=== PATIENT | female | born 2000 | race Two or more races ===

== ENCOUNTER 2024-07-26 22:44 | Inpatient (IN) | payer MEDICAID, OTHER ==
[~2024-07-26] VITALS: Ht 162.6 cm; Wt 60.3 kg
--- NOTE | 2024-07-26 23:32 | ED.PDOC ---
GI ASSESSMENT HPI Comments 23-year-old female who came to ER for nausea and vomiting. Patient states she has been having epigastric abdominal pain, nausea and vomiting for the past 2 days. States she could not keep anything in, keeps throwing up everything. Had episodes of diarrhea the 1st day, but the resolved spontaneously. Vomiting persisted, associated with tingling of extremities. Denies any possibility of Chief Complaint: Nausea and vomiting Time Seen by MD: 23:31 Reviewed Notes: Nurses Notes Allergies: Coded Allergies: No Known Drug Allergy (Verified Allergy, Unknown, 07/26/24) Information Source: Patient Mode of Arrival: Ambulatory Timing: Days Duration: Intermittent Prehospital treatment: None Quality: Cramping, Sharp Vomitus: Watery Stool: Loose, Watery Severity: Moderate Recent: Possible spoiled food Recent Hx of: None Pain Location: Epigastric Modifying Factors: Nothing Associated sign and symptoms: Nausea, Vomiting, Diarrhea, Abdominal Pain Past Medical History PAST MEDICAL HISTORY: Denies Surgical History: Denies all surgeries CHURNER History: Denies all CHURNER Hx Family History Family History: Reviewed,noncontributory to illness Social History Smoker: Non-Smoker Alcohol: Denies ETOH Use Drugs: Denies Drug Use Lives In: Home Constitutional: denies: chills, diaphoresis, fatigue, fever, malaise, sweats, weakness, others EENTM: denies: blurred vision, double vision, ear bleeding, ear discharge, ear drainage, ear pain, ear ringing, eye pain, eye redness, hearing loss, mouth pain, mouth swelling, nasal discharge, nose bleeding, nose congestion, nose pain, photophobia, tearing, throat pain, throat swelling, voice changes, others Respiratory: denies: cough, hemoptysis, orthopnea, SOB at rest, shortness of breath, SOB with excertion, stridor, wheezing, others Cardiovascular: denies: chest pain, dizzy spells, diaphoresis, Dyspnea on exertion, edema, irregular heart beat, left arm pain, lightheadedness, palpitations, PND, syncope, others Gastrointestinal: reports: abdominal pain, diarrhea, nausea, vomiting; denies: abdomen distended, blood streaked bowels, constipated, dysphagia, difficulty swallowing, hematemesis, melena, poor appetite, poor fluid intake, rectal bleeding, rectal pain, others Genitourinary: denies: abnormal vagina bleeding, burning, dyspareunia, dysuria, flank pain, frequency, hematuria, incontinence, pain, , vagina discharge, urgency, others Neurological: denies: dizziness, fainting, headache, left sided numbness, left sided weakness, numbness, paresthesia, pre-existing deficit, right sided numb ness, right sided weakness, seizure, speech problems, tingling, tremors, weakness, others Musculoskeletal: denies: back pain, gout, joint pain, joint swelling, muscle pain, muscle stiffness, neck pain, others Integumetry: denies: bruises, change in color, change in hair/nails, dryness, laceration, lesions, lumps, rash, wounds, others Allergic/Immunocompromised: denies: Difficulty Healing, Frequent Infections, Hives, Itching, others Hematologic/Lymphatic: denies: anemia, blood clots, easy bleeding, easy bruising, swollen glands, others Endocrine: denies: excessive hunger, excessive sweating, excessive thirst, excessive urination, flushing, intolerance to cold, intolerance to heat, unexplained weight gain, unexplained weight loss, others Psychiatric: reports: anxiety; denies: bipolar disorder, depression, hopeless, panic disorder, schizophrenia, sleepless, suicidal, others Physical Exam General Appearance: No Apparent Distress, Normal HEENT: Normal ENT Inspection, Pharynx Normal, TMs Normal Neck: Full Range of Motion, Non-Tender, Normal, Normal Inspection Respiratory: Chest Non-Tender, Lungs Clear, No Accessory Muscle Use, No Respiratory Distress, Normal Breath Sounds Cardiovascular: No Edema, No JVD, No Murmur, No Gallop, Normal Peripheral Pu lses, Regular Rate/Rhythm Breast Exam: Deferred Gastrointestinal: Epigastric, No Organomegaly, No Pulsatile Mass, Normal Bowel Sounds, Soft, Tenderness Genitalia: Deferred Pelvic: Deferred Rectal: Deferred Extremities: No calf tenderness, Normal capillary refill, Normal inspection, Normal range of motion, Non-tender, No pedal edema Musculoskeletal : Apperance: Normal Neurologic: Alert, upholstery repairer II-XII nml as Tested, No Motor Deficits, Normal Affect, Normal Mood, No Sensory Deficits Cerebellar Function: Normal Reflexes: Normal Skin: Dry, Normal Color, Warm Lymphatic: No Adenopathy Was a procedure done? Was a procedure done?: No GI differential Dx Differential Diagnosis: Diverticular disease, Gastritis/PUD, Gastroenteritis, UTI, Food Poisoning X-Ray, Labs, Meds, VS Vital Signs Date Time Temp Pulse Resp B/P (MAP) Pulse Ox O2 Delivery O2 Flow Rate FiO2 07/27/24 01:27 98.4 89 16 113/79 (90) 98 98.4 07/26/24 23:38 98.1 127 18 127/91 (103) 98 98.1 Lab Test 07/27/24 02:30 07/27/24 02:25 07/26/24 23:31 Range/Units Lactic Acid Level 4.6 *H 0.4-2.0 mmol/L Beta HCG, Quantitative 0.1 L 1.5-4.2 mIU/mL Influenza Type A Antigen Negative Negative Influenza Type B Antigen Negative Negative SARS-CoV-2 Antigen (Rapid) Negative NEGATIVE Group A Streptococcus Rapid Negative White Blood Count 21.4 H 4.4-10.8 10^3/uL Red Blood Count 5.57 H 4.0-5.20 10^6/uL Hemoglobin 17.1 H 12.2-16.2 g/dL Hematocrit 50.4 H 36.0-46.0 % Mean Corpuscular Volume 90.5 80.0-100.0 fL Mean Corpuscular Hemoglobin 30.7 28.0-32.0 pg Mean Corpuscular Hemoglobin Concent 33.9 32.0-36.0 g/dL Red Cell Distribution Width 13.3 11.8-14.3 % Platelet Count 296 140-450 10^3/uL Mean Platelet Volume 7.4 6.9-10.8 fL Neutrophils (%) (Auto) 87.4 H 37.0-80.0 % Lymphocytes (%) (Auto) 4.9 L 10.0-50.0 % Monocytes (%) (Auto) 7.5 0.0-12.0 % Eosinophils (%) (Auto) 0.0 0.0-7.0 % Basophils (%) (Auto) 0.2 0.0-2.0 % Neutrophils # (Auto) 18.7 H 1.6-8.6 10 ^3/uL Lymphocytes # (Auto) 1.0 0.4-5.4 10 ^3/uL Monocytes # (Auto) 1.6 H 0-1.3 10 ^3/uL Eosinophils # (Auto) 0 0-0.8 10 ^3/uL Basophils # (Auto) 0.1 0-0.2 10 ^3/uL Nucleated Red Blood Cells 0.0 % Sodium Level 139 136-145 mmol/L Potassium Level 3.5 3.5-5.1 mmol/L Chloride Level 97 L 98-107 mmol/L Carbon Dioxide Level 21 20-31 mmol/L Anion Gap 21 H 5-15 Blood Urea Nitrogen 16 9-23 mg/dL Creatinine 1.31 H 0.550-1.02 mg/dL Glomerular Filtration Rate Calc 59 >90 mL/min BUN/Creatinine Ratio 12.2 10.0-20.0 Serum Glucose 146 H 74-106 mg/dL Calcium Level 10.6 H 8.7-10.4 mg/dL Magnesium Level 1.8 1.6-2.6 mg/dL Total Bilirubin 0.5 0.2-1.0 mg/dL Aspartate Amino Transferase (AST) 25 13-40 U/L Alanine Aminotransferase (ALT) 20 7-40 U/L Alkaline Phosphatase 103 46-116 U/L Total Protein 8.5 H 5.7-8.2 g/dL Albumin 5.6 H 3.2-4.8 g/dL Current Medications Medications (Trade) Dose Ordered Sig/Gee Route Start Time Stop Time Status Last Admin Ondansetron HCl (Zofran) 4 mg ONCE ONCE IV 07/26/24 23:30 07/26/24 23:31 DC 07/27/24 01:06 Sodium Chloride 1,000 ml @ 1,000 mls/hr Q1H ONCE IVB 07/26/24 23:30 07/27/24 00:29 DC 07/27/24 01:06 Lorazepam (Ativan Inj) 1 mg ONCE ONCE IV 07/26/24 23:30 07/26/24 23:31 DC 07/27/24 01:06 Potassium Chloride (Klor-Con Tablet) 20 meq ONCE ONCE PO 07/26/24 23:30 07/26/24 23:31 DC 07/27/24 01:05 Piperacillin Sod/ Tazobactam Sod 100 ml @ 100 mls/hr ONCE ONCE IV 07/27/24 02:30 07/27/24 03:29 DC 07/27/24 02:30 Lidocaine HCl (Xylocaine 2% Viscous) 3 ml ONCE ONCE MT 07/27/24 02:30 07/27/24 02:31 DC 07/27/24 02:39 Metoclopramide HCl (Reglan Injection) 10 mg ONCE ONCE IV 07/27/24 03:45 07/27/24 03:46 DC 07/27/24 03:43 Diphenhydramine HCl (Benadryl Injection) 25 mg ONCE ONCE IV 07/27/24 03:45 07/27/24 03:46 DC 07/27/24 03:43 Exam: CT CT AB PEL WO CON-NO ORAL OR IV History: abd pain Comparison Study: None Technique: Multidetector spiral CT of the abdomen was performed from lung bases to pubic symphysis. Imaging was performed without IV contrast. Axial, coronal and sagittal multiplanar reformats were obtained from the axial data set by the technologist. Radiation Dose : 1. Abdomen/Pelvis: CTDIvol 5.82 mGy, DLP 308.63 mGy*cm. Findings: Evaluation of solid organs is limited due to lack of intravenous contrast use. Lung Bases: No acute or significant lung base finding. Normal heart size. No pleural or pericardial effusion. Liver: The liver is normal in size. No focal lesions. Gallbladder and Biliary Tree: Unremarkable Spleen: Unremarkable Pancreas: The pancreas is grossly normal in appearance. Adrenal Glands: Unremarkable Kidneys: Kidneys are grossly normal without calculi or hydronephrosis. Bladder: Grossly unremarkable for degree of distention. Bowel: The stomach is grossly normal in appearance. Small bowel and colon are normal in caliber and distribution. The appendix is not visualized; however, no secondary findings of acute appendicitis identified. Ascites: Small volume likely physiologic pelvic cul-de-sac free fluid. Lymphadenopathy: No mesenteric, retroperitoneal or periportal lymphadenopathy. Abdominal Wall and Mesentery: Unremarkable. Vasculature: The visualized abdominal aorta is normal in size and caliber. Evaluation of abdominal and pelvic vessels is limited due to lack of intravenous contrast. Pelvic Organs: Unremarkable Musculoskeletal: No aggressive focal bony lesions, acute fractures or dislocation. IMPRESSION: 1. No acute abdominal or pelvic findings. 2. Small volume likely physiologic pelvic cul-de-sac free fluid. Time of 1ST Reevaluation: 23:23 Reevaluation 1ST: Unchanged Patient Education/Counseling: Diagnosis, Treatment Family Education/Counseling: Diagnosis, Treatment Sepsis focused exam: focus exam completed (In the initial resuscitation at least 30 mL/kg of IV crystalloid fluid was NOT given within the first 3 hr due to concerns of fluid overload), time: (99) Sepsis Sepsis Reasesment Focused Exam Sepsis focused exam: focus exam completed (In the initial resuscitation at least 30 mL/kg of IV crystalloid fluid was NOT given within the first 3 hr due to concerns of fluid overload), time: (99) Orders: Laboratory Tests 07/27/24 02:30: Lactic Acid Level 4.6 Departure 1 Departure Time of Disposition: 04:00 Impression: Primary Impression: Sepsis syndrome Additional Impression: Dehydration Disposition: 09 ADMITTED INPATIENT Admit to: Med Surg Condition: Guarded Comments Sepsis with Fever, Nausea, and Vomiting Chief Complaint: Fever, nausea, vomiting, sore throat, and abdominal pain History of Present Illness: 23-year-old female presents with a 2-day history of fevers, malaise, nausea, vomiting, sore throat, and generalized abdominal pain. Patient reports difficulty holding down fluids. Symptoms have been persistent despite home management. Review of Systems: Constitutional: Positive for fever, malaise Gastrointestinal: Positive for nausea, vomiting, abdominal pain ENT: Positive for sore throat All other systems reviewed and negative Vital Signs: Heart Rate: 120s bpm (tachycardic) Physical Exam: Limited exam details available from caddie supervisor Lab Results: WBC: 21,000 with 87% neutrophils (elevated with left shift) Creatinine: 1.31 (elevated) Lactic acid: 4.6 (elevated) Strep test: Negative Influenza test: Negative COVID-19 test: Negative Imaging and Other Relevant Results: CT Abdomen/Pelvis: No acute pathology Medical Decision Making: Summary Statement: 23-year-old female presenting with sepsis syndrome, characte rized by tachycardia, elevated WBC with left shift, elevated lactate, and organ dysfunction (elevated creatinine). Problem List: 1. Sepsis syndrome 2. Dehydration 3. Intractable vomiting Differential Diagnosis: Sepsis (unknown source), gastroenteritis, yara lonephritis, intra-abdominal infection, viral syndrome ED Course: Patient received IV fluid resuscitation, broad-spectrum antibiotics (Zosyn and Rocephin), and antiemetics (Zofran and Reglan). Due to persistent symptoms and sepsis criteria, admission was warranted. Assessment and Plan: 1. Sepsis Syndrome - Broad-spectrum antibiotics initiated (Zosyn and Rocephin) - IV fluid resuscitation - Admission to hospital for continued management and source identification 2. Intractable Vomiting/Dehydration - IV antiemetics administered (Zofran and Reglan) - IV fluid replacement - Continue supportive care during admission Billing Information: ICD-10: A41.9 - Sepsis, unspecified organism ICD-10: R11.2 - Nausea with vomiting, unspecified ICD-10: E86.0 - Dehydration Critical Care Note Critical Care Time?: Yes (35 min-critical care time only) Critical care comment: Total critical care time: Approximately 36 minutes Due to a high probability of clinically significant, life threatening deterioration, the patient required my highest level of preparedness to intervene emergently and I personally spent this critical care time directly and personally managing the patient. This critical care time included obtaining a history; examining the patient; pulse oximetry; ordering and review of studies; arranging urgent treatment with development of a management plan; evaluation of patient's response to treatment; frequent reassessment; and, discussions with other providers. This critical care time was performed to assess and manage the high probability of imminent, life-threatening deterioration that could result in multi-organ failure. It was exclusive of separately billable procedures and treating other patients. Stability Stability form required: No Heart Score Heart Score: Heart Score Response (Comments) Value History N/A 0 EKG N/A 0 Age N/A 0 Risk Factors N/A 0 Troponin N/A 0 Total 0 I personally scribed for ELYSSA VIGIL MD ([email or web address]) on 07/26/24 at 23:32. Electronically submitted by Coredll Sanchez ([email or web address]). I personally scribed for ELYSSA VIGIL MD ([email or web address]) on 07/27/24 at 03:59. Electronically submitted by Cordell Sanchez ([email or web address]). ELYSSA VIGIL MD Jul 26, 2024 23:32
[2024-07-26 23:40] LABS: Basophils # (auto) 0.1 10 ^3/uL (0-0.2); Basophils % (auto) 0.2 % (0.0-2.0); Eosinophils # (auto) 0 10 ^3/uL (0-0.8); Hematocrit 50.4 % (36.0-46.0); Hemoglobin 17.1 g/dL (12.2-16.2); Lymphocytes % (auto) 4.9 % (10.0-50.0); Mean Corpuscular Hemoglobin 30.7 pg (28.0-32.0); Mean Corpuscular Hgb Conc. 33.9 g/dL (32.0-36.0); Mean Corpuscular Volume 90.5 fL (80.0-100.0); Monocytes # (auto) 1.6 10 ^3/uL (0-1.3); Monocytes % (auto) 7.5 % (0.0-12.0); Neutrophils # (auto) 18.7 10 ^3/uL (1.6-8.6); Neutrophils % (auto) 87.4 % (37.0-80.0); Platelet Count (auto) 296 10^3/uL (140-450); Red Blood Cells 5.57 10^6/uL (4.0-5.20); Red Cell Distribution Width 13.3 % (11.8-14.3); White Blood Cell 21.4 10^3/uL (4.4-10.8)
[2024-07-27] VITALS (9 sets, daily range): BP systolic 104–141; BP diastolic 66–116; PULSE 69–90; RESP 16–24; TEMP 98–98.9; O2SAT 91–100
[2024-07-27 00:04] LABS: Bilirubin, Total 0.5 mg/dL (0.2-1.0)
[2024-07-27] MEDS: POTASSIUM CHL 20 Meq TABLET PO ONE (01:05)
[2024-07-27] MEDS: ONDANSETRON HCL 4 MG/2 ML VIAL IV ONE (01:06)
[2024-07-27] MEDS: SODIUM CHLORIDE 0.9% 1,000 ML IVB ONE (01:06)
[2024-07-27] MEDS: LORazepam 2MG/ML-1ML VIAL IV ONE (01:06)
[2024-07-27 01:08] LABS: Chloride 97 mmol/L (98-107); Potassium 3.5 mmol/L (3.5-5.1); Sodium 139 mmol/L (136-145)
[2024-07-27 01:09] LABS: Anion Gap 21 (5-15)
[2024-07-27 01:15] LABS: BUN/Creatinine Ratio 12.2 (10.0-20.0)
[2024-07-27 01:18] LABS: Alanine Aminotransferase 20 U/L (7-40); Albumin 5.6 g/dL (3.2-4.8); Alkaline Phosphatase 103 U/L (46-116); Aspartate Aminotransferase 25 U/L (13-40); Blood Urea Nitrogen 16 mg/dL (9-23); Calcium 10.6 mg/dL (8.7-10.4); Carbon Dioxide 21 mmol/L (20-31); Glucose 146 mg/dL (74-106); Magnesium 1.8 mg/dL (1.6-2.6); Total Protein 8.5 g/dL (5.7-8.2)
[2024-07-27] MEDS: PIPERACILLIN-TAZOB 3.375GM 100 ML IV ONE (02:30)
[2024-07-27] MEDS: LIDOCAINE VISCOUS 2% 15ML UD MT ONE (02:39)
[2024-07-27 03:01] LABS: Lactic Acid w/Reflex 4.6 mmol/L (0.4-2.0)
[2024-07-27] MEDS: METOCLOPRAMIDE HCL 5MG/ml INJ 2ml VIAL IV ONE (03:43)
[2024-07-27] MEDS: diphenhdrAMINE HCL 50 MG/1 ML VL IV ONE (03:43)
--- NOTE | 2024-07-27 03:45 | DVH ---
Exam: CT CT AB PEL WO CON-NO ORAL OR IV History: abd pain Comparison Study: None Technique: Multidetector spiral CT of the abdomen was performed from lung bases to pubic symphysis. I maging was performed without IV contrast. Axial, coronal and sagittal multiplanar reformats were obta ined from the axial data set by the technologist. Radiation Dose : 1. Abdomen/Pelvis: CTDIvol 5.82 mGy, DLP 308.63 mGy*cm. Findings: Evaluation of solid organs is limited due to lack of intravenous contrast use. Lung Bases: No acute or significant lung base finding. Normal heart size. No pleural or pericardial effusion. Liver: The liver is normal in size. No focal lesions. Gallbladder and Biliary Tree: Unremarkable Spleen: Unremarkable Pancreas: The pancreas is grossly normal in appearance. Adrenal Glands: Unremarkable Kidneys: Kidneys are grossly normal without calculi or hydronephrosis. Bladder: Grossly unremarkable for degree of distention. Bowel: The stomach is grossly normal in appearance. Small bowel and colon are normal in caliber and d istribution. The appendix is not visualized; however, no secondary findings of acute appendicitis toño ntified. Ascites: Small volume likely physiologic pelvic cul-de-sac free fluid. Lymphadenopathy: No mesenteric, retroperitoneal or periportal lymphadenopathy. Abdominal Wall and Mesentery: Unremarkable. Vasculature: The visualized abdominal aorta is normal in size and caliber. Evaluation of abdominal a nd pelvic vessels is limited due to lack of intravenous contrast. Pelvic Organs: Unremarkable Musculoskeletal: No aggressive focal bony lesions, acute fractures or dislocation. IMPRESSION: 1. No acute abdominal or pelvic findings. 2. Small volume likely physiologic pelvic cul-de-sac free fluid. Radiation optimization: All CT scans at this facility use at least one of these dose optimization travis hniques: automated exposure control mA and/or kV adjustment per patient size (includes targeted exam s where dose is matched to clinical indication) or iterative reconstruction.
[2024-07-27 03:51] LABS: Rapid Strep A Screen-Throat Negative
[2024-07-27 03:52] LABS: COVID19 ANTIGEN SOFIA FIA NEGATIVE (NEGATIVE); Rapid Influenza A Negative (Negative); Rapid Influenza B Negative (Negative)
[2024-07-27] MEDS: SODIUM CHLORIDE 0.9% 1,000 ML IV ONE (04:00)
[2024-07-27] MEDS: cefTRIAXone 1GM/50ML D5W 50 ML IV ONE (04:00)
--- NOTE | 2024-07-27 06:11 | DVHHP2 ---
History of Present Illness Reason for Visit: Sepsis, unspecified organism History of Present Illness The patient is a 23-year-old female who denies past medical history presented to [facility] ED with complaint of intractable nausea and vomiting. Patient reports symptoms progressively get worse with epigastric abdominal pain, persistent nausea, vomiting, diarrhea, unable to keep anything down for the past 2 days, tingling of extremities, getting worse that prompted this visit. Patient was seen and evaluated in the ED, laboratory data shows WBC 21.4, lactic acid 4.6, platelets 296, sodium 139, potassium 3.5, BUN 16, creatinine 1.31, glucose 146, protein 8.5, albumin 5.6, blood pressure 113/79, heart rate 85, temperature 98.4 F, O2 saturation 98% on room air. Abdomen/pelvis CT revealing small volume likely physiologic pelvic cul-de-sac free fluid, no acute abdominal or pelvic findings. Patient was started on IV antibiotic regimen Zosyn, please see medication orders section in the computer. On my assessment, patient denied chest pain, no possible , no headache, no dizziness, no diaphoresis, no shortness of breath, no abdominal pain, diarrhea, nausea or vomiting at this moment, no fever, no chills. Patient was admitted for further evaluation and medical management. Past Medical History Denies past medical history Past Surgical History Denies all surgeries Family History Reviewed, noncontributory to the management of this case. Past Social History The patient lives at home, denies smoking, alcohol or illicit drugs abuse. Review of Systems Constitutional: No: Fever, Chills, Sweats, Weakness, Malaise, Other Eyes: No: Pain, Vision change, Conjunctivae inflammation, Eyelid inflammation, Other, Redness ENT: No: Ear pain, Ear discharge, Nose pain, Nose discharge, Nose congestion, Mouth pain, Mouth swelling, Throat pain, Throat swelling, Other Respiratory: No: Cough, Dry, Shortness of breath, SOB with excertion, Wheezing, Hemoptysis, Pleuritic Pain, Sputum, Wheezing, Other Cardiovascular: No: Chest Pain, Palpitations, Orthopnea, Paroxysmal Noc. Dyspnea, Edema, Lt Headedness, Other Gastrointestinal: Nausea, Vomiting, Abdominal Pain, Diarrhea; No: Constipation, Melena, Hematochezia, Other Genitourinary: No Dysuria, No Frequency, No Incontinence, No Hematuria, No Retention, No Other Musculoskeletal: No: other, neck pain, shoulder pain, arm pain, back pain, hand pain, leg pain, foot pain Skin: No: Rash, Lesions, Jaundice, Bruising, Other Neurological: No: Weakness, Numbness, Incoordination, Change in speech, Confusion, Seizures, Other Allergies: Coded Allergies: No Known Drug Allergy (Verified Allergy, Unknown, 07/26/24) Exam Vital Signs Vital Signs Date Time Temp Pulse Resp B/P (MAP) Pulse Ox O2 Delivery O2 Flow Rate FiO2 07/27/24 01:27 98.4 89 16 113/79 (90) 98 98.4 General Appearance: Alert, Oriented X3, Cooperative, No acute distress HEENT: Atraumatic, PERRLA, EOMI, Mucous membr. moist/pink Respiratory: Clear to auscultation, Normal air movement Cardiovascular: Regular rate, Normal S1, Normal S2, No murmurs Abdominal: Normal bowel sounds, Soft, No hepatospenomegaly, No masses, Other (Reports tenderness) Extremities: No clubbing, No cyanosis, No edema, Normal pulses, No tenderness/swelling Skin: No rashes, No breakdown, No significant lesion Neuro: Normal gait, Normal speech, Strength at 5/5 X4 ext, Normal tone, Sensation intact, Cranial nerves 3-12 NL, Reflexes 2+ Psych/Mental Status: Mental status NL, Mood NL Labs/Xrays Labs Test 07/27/24 05:55 07/27/24 02:30 07/27/24 02:25 07/26/24 23:31 Range/Units Beta HCG, Quantitative 0.1 L 1.5-4.2 mIU/mL Influenza Type A Antigen Negative Negative Influenza Type B Antigen Negative Negative SARS-CoV-2 Antigen (Rapid) Negative NEGATIVE Group A Streptococcus Rapid Negative White Blood Count 21.4 H 4.4-10.8 10^3/uL Red Blood Count 5.57 H 4.0-5.20 10^6/uL Hemoglobin 17.1 H 12.2-16.2 g/dL Hematocrit 50.4 H 36.0-46.0 % Mean Corpuscular Volume 90.5 80.0-100.0 fL Mean Corpuscular Hemoglobin 30.7 28.0-32.0 pg Mean Corpuscular Hemoglobin Concent 33.9 32.0-36.0 g/dL Red Cell Distribution Width 13.3 11.8-14.3 % Platelet Count 296 140-450 10^3/uL Mean Platelet Volume 7.4 6.9-10.8 fL Neutrophils (%) (Auto) 87.4 H 37.0-80.0 % Lymphocytes (%) (Auto) 4.9 L 10.0-50.0 % Monocytes (%) (Auto) 7.5 0.0-12.0 % Eosinophils (%) (Auto) 0.0 0.0-7.0 % Basophils (%) (Auto) 0.2 0.0-2.0 % Neutrophils # (Auto) 18.7 H 1.6-8.6 10 ^3/uL Lymphocytes # (Auto) 1.0 0.4-5.4 10 ^3/uL Monocytes # (Auto) 1.6 H 0-1.3 10 ^3/uL Eosinophils # (Auto) 0 0-0.8 10 ^3/uL Basophils # (Auto) 0.1 0-0.2 10 ^3/uL Nucleated Red Blood Cells 0.0 % Sodium Level 139 136-145 mmol/L Potassium Level 3.5 3.5-5.1 mmol/L Chloride Level 97 L 98-107 mmol/L Carbon Dioxide Level 21 20-31 mmol/L Anion Gap 21 H 5-15 Blood Urea Nitrogen 16 9-23 mg/dL Creatinine 1.31 H 0.550-1.02 mg/dL Glomerular Filtration Rate Calc 59 >90 mL/min BUN/Creatinine Ratio 12.2 10.0-20.0 Serum Glucose 146 H 74-106 mg/dL Calcium Level 10.6 H 8.7-10.4 mg/dL Magnesium Level 1.8 1.6-2.6 mg/dL Total Bilirubin 0.5 0.2-1.0 mg/dL Aspartate Amino Transferase (AST) 25 13-40 U/L Alanine Aminotransferase (ALT) 20 7-40 U/L Alkaline Phosphatase 103 46-116 U/L Total Protein 8.5 H 5.7-8.2 g/dL Albumin 5.6 H 3.2-4.8 g/dL PATIENT: GAB ERVIN ACCT: [id number] UNIT: [id number] : 2000 LOC: ER ROOM / BED: / AGE / SEX: 23 / F ADM STATUS: REG ER SERVICE 0216 ORDERING PHYSICIAN: ELYSSA VIGIL MD PROCEDURE(s): ABPL - CT AB PEL WO CON-NO ORAL OR IV REASON: abd pain ORDER NUMBER(s): [id number], ACCESSION NUMBER(s): [id number] Exam: CT CT AB PEL WO CON-NO ORAL OR IV History: abd pain Comparison Study: None Technique: Multidetector spiral CT of the abdomen was performed from lung bases to pubic symphysis. Imaging was performed without IV contrast. Axial, coronal and sagittal multiplanar reformats were obtained from the axial data set by the technologist. Radiation Dose: 1. Abdomen/Pelvis: CTDIvol 5.82 mGy, DLP 308.63 mGy*cm. Findings: Evaluation of solid organs is limited due to lack of intravenous contrast use. Lung Bases: No acute or significant lung base finding. Normal heart size. No pleural or pericardial effusion. Liver: The liver is normal in size. No focal lesions. Gallbladder and Biliary Tree: Unremarkable Spleen: Unremarkable Pancreas: The pancreas is grossly normal in appearance. Adrenal Glands: Unremarkable Kidneys: Kidneys are grossly normal without calculi or hydronephrosis. Bladder: Grossly unremarkable for degree of distention. Bowel: The stomach is grossly normal in appearance. Small bowel and colon are normal in caliber and distribution. The appendix is not visualized; however, no secondary findings of acute appendicitis identified. Ascites: Small volume likely physiologic pelvic cul-de-sac free fluid. Lymphadenopathy: No mesenteric, retroperitoneal or periportal lymphadenopathy. Abdominal Wall and Mesentery: Unremarkable. Vasculature: The visualized abdominal aorta is normal in size and caliber. Evaluation of abdominal and pelvic vessels is limited due to lack of intravenous contrast. Pelvic Organs: Unremarkable Musculoskeletal: No aggressive focal bony lesions, acute fractures or dislocation. IMPRESSION: 1. No acute abdominal or pelvic findings. 2. Small volume likely physiologic pelvic cul-de-sac free fluid. Assessment/Plan Assessment/Plan Sepsis, unspecified organism Dehydration Acute renal injury Intractable nausea and vomiting Acute abdominal pain Plan 1. Admit to telemetry unit 2. Breathing treatment 3. Pain control management 4. IV antibiotic management 5. Management of fluids and electrolytes 6. Consultation for GI/hospitalist 7. Diagnostic test abdomen/pelvis CT 8. DVT prophylaxis on SCDs 9. Repeat labs CBC, CMP in a.m. 10. Continue with current medical management 11. Treatment plan discussed with patient and RN. Patient verbalized understanding. Plan discussed with: Patient, Other (RN) My Orders Orders - RICHARD ALMANZA DNP Procedure Category Date Status Time Complete Blood Count LAB 07/27/24 Verified 06:02 Comprehensive LAB 07/27/24 Verified Metabolic Panel 06:02 Pantoprazole PHA 07/27/24 Verified (Protonix) 10:00 Zosyn Extended PHA 07/27/24 Verified Infusion 14:00 NS PHA 07/27/24 Verified 06:15 Lactic Acid W/ Reflex LAB 07/27/24 Verified Order 06:02 Vancomycin Per PHA 07/27/24 Verified Pharmacy 06:15 Potassium Chl Stan PHA 07/27/24 Verified KCL 06:15 Admit ADMIT 07/27/24 Verified 06:02 Allergies HODAN 07/27/24 Verified 06:02 Code Status CODE 07/27/24 Verified 06:02 0.9% Ns 1000 Ml PHA 07/27/24 Verified 06:15 Oxygen Per Hour RT 07/27/24 Verified 06:02 Hydrocodone-Acet PHA 07/27/24 Verified 5/325mg Tab ([place] 06:15 Ondansetron Hcl PHA 07/27/24 Verified (Zofran) 06:15 Docusate Sodium PHA 07/27/24 Verified Capsule ([place] 06:15 Complete Blood Count LAB 07/28/24 Verified 04:00 Comprehensive LAB 07/28/24 Verified Metabolic Panel 04:00 Problem List: (1) Sepsis, unspecified organism (2) Dehydration (3) Acute renal injury (4) Intractable nausea and vomiting (5) Acute abdominal pain Date of Service: Jul 27, 2024 Billing Provider: RICHARD ALMANZA DNP Common Visit Codes: [id number] INP/OBS CARE (HIGH) RICHARD ALMANZA DNP Jul 27, 2024 06:11
[2024-07-27] MEDS ORDERED: ACETAMINOPHEN 325 MG TAB PO PRN (06:15)
[2024-07-27] MEDS ORDERED: MORPHINE SULFATE INJ 2 MG/ml SYRG IV PRN (06:15)
[2024-07-27] MEDS ORDERED: DOCUSATE SOD 100 MG CAP PO PRN (06:15)
[2024-07-27] MEDS: POTASSIUM CHL 20MEQ/100ML 100 ML IV ONE (06:15)
[2024-07-27] MEDS ORDERED: VANCOMYCIN PER PHARMACY 0 MG IV SCH (06:15)
[2024-07-27 06:40] LABS: Alanine Aminotransferase 16 U/L (7-40); Alkaline Phosphatase 87 U/L (46-116); Anion Gap 15 (5-15); Aspartate Aminotransferase 24 U/L (13-40); BUN/Creatinine Ratio 16.3 (10.0-20.0); Bilirubin, Total 0.5 mg/dL (0.2-1.0); Blood Urea Nitrogen 17 mg/dL (9-23); Calcium 9.9 mg/dL (8.7-10.4); Carbon Dioxide 26 mmol/L (20-31); Chloride 104 mmol/L (98-107); Sodium 145 mmol/L (136-145); Total Protein 7.3 g/dL (5.7-8.2)
[2024-07-27 06:43] LABS: Albumin 4.9 g/dL (3.2-4.8); Glucose 124 mg/dL (74-106)
[2024-07-27] MEDS: PROCHLORPERAZINE EDISYLATE 5 MG/ML 2ML VIAL IV ONE (06:54)
[2024-07-27 07:11] LABS: Basophils # (auto) 0 10 ^3/uL (0-0.2); Eosinophils # (auto) 0 10 ^3/uL (0-0.8); Eosinophils % (auto) 0.1 % (0.0-7.0); Hematocrit 43.2 % (36.0-46.0); Hemoglobin 14.9 g/dL (12.2-16.2); Lymphocytes # (auto) 0.6 10 ^3/uL (0.4-5.4); Mean Corpuscular Hemoglobin 30.9 pg (28.0-32.0); Mean Corpuscular Hgb Conc. 34.4 g/dL (32.0-36.0); Mean Corpuscular Volume 89.6 fL (80.0-100.0); Monocytes # (auto) 1.7 10 ^3/uL (0-1.3); Monocytes % (auto) 10.8 % (0.0-12.0); Neutrophils # (auto) 13.4 10 ^3/uL (1.6-8.6); Neutrophils % (auto) 85.1 % (37.0-80.0); Nucleated Red Blood Cells % 0.1 %; Platelet Count (auto) 223 10^3/uL (140-450); Red Blood Cells 4.82 10^6/uL (4.0-5.20); Red Cell Distribution Width 12.8 % (11.8-14.3); White Blood Cell 15.8 10^3/uL (4.4-10.8)
[2024-07-27 07:33] LABS: Lactic Acid w/Reflex 2.4 mmol/L (0.4-2.0)
[2024-07-27] MEDS: VANCOMYCIN 1.25gm/250mL PREMIX or KIT IV ONE (09:03)
[2024-07-27] MEDS: SODIUM CHLORIDE 0.9% 500 ML IV ONE (09:03)
[2024-07-27 09:56] LABS: Urine Bacteria FEW /hpf (None Seen); Urine Blood Negative /uL (Negative); Urine Clarity Turbid (Clear); Urine Color Colorless (Yellow); Urine Protein, UAD Negative (Negative); Urine Specific Gravity 1.015 (1.001-1.035); Urine Squamous Epithelial Cell MOD /hpf (<5); Urine Urobilinogen Normal (Negative); Urine WBC 9 /HPF (0-5)
[2024-07-27] MEDS: PANTOPRAZOLE 40 MG/10 ML VIAL INJ IV SCH (10:30)
[2024-07-27] MEDS: HYDROcodone-ACET 5/325MG TAB PO PRN (10:30)
[2024-07-27] MEDS: PROCHLORPERAZINE EDISYLATE 5 MG/ML 2ML VIAL IV PRN (10:30)
[2024-07-27] MEDS: PIPERACILLIN-TAZOB 3.375GM 100 ML IV SCH (10:31)
[2024-07-27] MEDS: SODIUM CHLORIDE 0.9% 1,000 ML IV SCH ×2 (10:32→15:00)
[2024-07-27] MEDS: ONDANSETRON HCL 4 MG/2 ML VIAL IV PRN (20:05)
[2024-07-27] MEDS: NITROGLYCERIN 0.4 MG SL TAB SL PRN (20:28)
[2024-07-28] VITALS (8 sets, daily range): BP systolic 124–144; BP diastolic 77–97; PULSE 62–83; RESP 16–20; TEMP 97.6–99.5; O2SAT 97–100
[2024-07-28 06:57] LABS: Basophils # (auto) 0 10 ^3/uL (0-0.2); Basophils % (auto) 0.4 % (0.0-2.0); Eosinophils # (auto) 0 10 ^3/uL (0-0.8); Eosinophils % (auto) 0.1 % (0.0-7.0); Hematocrit 41.6 % (36.0-46.0); Hemoglobin 14.1 g/dL (12.2-16.2); Lymphocytes # (auto) 1.6 10 ^3/uL (0.4-5.4); Lymphocytes % (auto) 14.6 % (10.0-50.0); Mean Corpuscular Hemoglobin 30.6 pg (28.0-32.0); Mean Corpuscular Hgb Conc. 33.9 g/dL (32.0-36.0); Mean Corpuscular Volume 90.3 fL (80.0-100.0); Monocytes # (auto) 1.1 10 ^3/uL (0-1.3); Monocytes % (auto) 9.7 % (0.0-12.0); Neutrophils # (auto) 8.4 10 ^3/uL (1.6-8.6); Neutrophils % (auto) 75.2 % (37.0-80.0); Nucleated Red Blood Cells % 0.1 %; Platelet Count (auto) 188 10^3/uL (140-450); Red Blood Cells 4.61 10^6/uL (4.0-5.20); White Blood Cell 11.1 10^3/uL (4.4-10.8)
[2024-07-28 07:10] LABS: Alanine Aminotransferase 22 U/L (7-40); Albumin 4.4 g/dL (3.2-4.8); Alkaline Phosphatase 76 U/L (46-116); Anion Gap 13 (5-15); Calcium 9.6 mg/dL (8.7-10.4); Carbon Dioxide 25 mmol/L (20-31); Chloride 104 mmol/L (98-107); Glucose 100 mg/dL (74-106); Sodium 142 mmol/L (136-145); Total Protein 6.7 g/dL (5.7-8.2)
[2024-07-28 07:12] LABS: Bilirubin, Total 0.7 mg/dL (0.2-1.0)
[2024-07-28 07:13] LABS: Aspartate Aminotransferase 46 U/L (13-40); Blood Urea Nitrogen 7 mg/dL (9-23); Potassium 2.9 mmol/L (3.5-5.1)
--- NOTE | 2024-07-28 08:37 | ECG ---
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
[2024-07-28] MEDS: VANCOMYCIN 1.25GM/250ML 250 ML IV SCH (13:22)
[2024-07-28] MEDS: POTASSIUM CHL 20MEQ/100ML 100 ML IV SCH ×2 (15:25→22:57)
--- NOTE | 2024-07-28 17:07 | DVHPN2 ---
Subjective Overnight events noted. Patient is still complaining of nausea and vomiting. Changes from previous H/P or p: No Changes Eyes: No Pain, No Vision change, No Conjunctivae inflammation, No Eyelid inflammation, No Other, No Redness ENT: No Ear pain, No Ear discharge, No Nose pain, No Nose discharge, No Nose congestion, No Mouth pain, No Mouth swelling, No Throat pain, No Throat swelling, No Other Cardiovascular: No Chest Pain, No Palpitations, No Orthopnea, No Paroxysmal Noc. Dyspnea, No Edema, No Lt Headedness, No Other Respiratory: No Cough, No Dry, No Shortness of breath, No SOB with excertion, No Wheezing, No Hemoptysis, No Pleuritic Pain, No Sputum, No Other Gastrointestinal: Nausea, Vomiting, Abdominal Pain, Diarrhea; No Constipation, No Melena, No Hematochezia, No Other Genitourinary: No Dysuria, No Frequency, No Incontinence, No Hematuria, No Retention, No Other Musculoskeletal: No other, No neck pain, No shoulder pain, No arm pain, No back pain, No hand pain, No leg pain, No foot pain Skin: No Rash, No Lesions, No Jaundice, No Bruising, No Other Objective Vitals Vital Signs Date Time Temp Pulse Resp B/P (MAP) Pulse Ox O2 Delivery O2 Flow Rate FiO2 07/28/24 13:00 98.3 65 18 143/92 (109) 100 98.3 07/28/24 08:00 Room Air* 0 21 Intake/Output Intake and Output 07/28/24 07:00 Intake Total 2114 ml Balance 2114 ml Intake Oral 854 ml IV Total 1260 ml # Voids 4 Exam HEENT pupils are reactive Neck is supple CV is S1-S2 regular rate and rhythm Respiratory are clear GI posterior bowel sound Extremity no edema TELESALES REPRESENTATIVE no motor deficit Medications Current Medications Medications Dose Ordered Sig/Gee Route Start Time Stop Time Status Last Admin Dose Admin Pantoprazole Sodium 40 mg DAILY IV 07/27/24 10:00 07/28/24 08:45 40 MG Piperacillin Sod/ Tazobactam Sod 100 ml @ 25 mls/hr Q8HR@0200,1000,1800 IV 07/27/24 10:00 07/28/24 08:45 25 MLS/HR Vancomycin HCl 0 ml @ 0 mls/hr UD IV 07/27/24 06:15 Acetaminophen/ Hydrocodone Bitart 1 tab Q4HP PRN PO 07/27/24 06:15 07/28/24 08:45 1 TAB Ondansetron HCl 4 mg Q4HP PRN IV 07/27/24 06:15 07/28/24 15:30 4 MG Docusate Sodium 100 mg BIDPRN PRN PO 07/27/24 06:15 Acetaminophen 650 mg Q6HP PRN PO 07/27/24 06:15 Nitroglycerin 0.4 mg Q5MINP PRN SL 07/27/24 06:15 07/27/24 20:28 0.4 MG Morphine Sulfate 2 mg Q30M PRN IV 07/27/24 06:15 Sodium Chloride 1,000 ml @ 150 mls/hr Q6H40M IV 07/27/24 15:00 07/28/24 13:22 150 MLS/HR Vancomycin HCl 250 ml @ 200 mls/hr Q16H IV 07/28/24 10:00 07/28/24 13:22 200 MLS/HR Potassium Chloride 100 ml @ 50 mls/hr Q2H IV 07/28/24 12:15 07/28/24 18:14 07/28/24 15:25 50 MLS/HR Laboratory Results Laboratory Tests 07/28/24 06:22 Chemistry Test 07/28/24 06:22 Albumin 4.4 g/dL (3.2-4.8) Calcium Level 9.6 mg/dL (8.7-10.4) Total Protein 6.7 g/dL (5.7-8.2) LFT Test 07/28/24 06:22 Alanine Aminotransferase (ALT) 22 U/L (7-40) Alkaline Phosphatase 76 U/L (46-116) Aspartate Amino Transferase (AST) 46 U/L (13-40) H Total Bilirubin 0.7 mg/dL (0.2-1.0) Urinalysis Test 07/27/24 09:37 Urine Color Colorless (Yellow) Urine Clarity Turbid (Clear) H Urine pH 7.0 (5.0-9.0) Urine Specific [place] 1.015 (1.001-1.035) Urine Protein Negative (Negative) Urine Ketones 1+ (Negative) H Urine Blood Negative /uL (Negative) Urine Nitrite Negative (Negative) Urine Bilirubin Negative (Negative) Urine Urobilinogen Normal mg/dL (Negative) Urine Leukocyte Esterase 3+ /uL (Negative) Urine RBC 6 /hpf (0 - 4) Urine Microscopic WBC 9 /HPF (0-5) H Urine Squamous Epithelial Cells Mod /hpf (<5) Urine Bacteria Few /hpf (None Seen) H Urine Glucose Normal mg/dL (Normal) Urine Test Negative (Negative) Microbiology Microbiology Date/Time Source Procedure Growth Status 07/27/24 02:33 Blood Blood Culture - Preliminary NO GROWTH AFTER 24 HOURS OF INCUBATION. Resulted 07/27/24 02:25 Throat Nose/Throat Culture - Preliminary Resulted Assessment/Plan Assessment/Plan 73-year-old female initiation with the hospital with the abdominal pain nausea vomiting found to have 1. Abdominal pain nausea vomiting suspect acute gastroenteritis 2. Lactic acidosis 3. Leukocytosis likely reactive -clear liquid diet as tolerated IV Zofran, patient was requesting IV Reglan and Zofran is not working. Side effects of Reglan including total QRS and other TELESALES REPRESENTATIVE side effects explained with the patient in detail who understand verbalized the understanding and agreeable-to plan GI consultation. Plan discussed with: Patient My Orders Orders - THOM FLOYD MD Procedure Category Date Status Time Communication Order ORDERS 07/27/24 Transmitted 18:34 Potassium Chl PHA 07/28/24 In Process 20meq/100ml 12:15 * Gi Dvh [facility] Bench Hand CONS 07/28/24 Transmitted 13:18 Date of Service: Jul 28, 2024 Billing Provider: THOM FLOYD MD Common Visit Codes: [id number] INP/OBS CARE(MOD) THOM FLOYD MD Jul 28, 2024 17:07
--- NOTE | 2024-07-28 18:38 | DVHINCON2 ---
Date of service: Jul 28, 2024 Reason for Consultation Intractable nausea and vomiting and epigastric pain and diarrhea History of Present Illness 73-year-old female with a with admitted with complaints of abdominal pain nausea vomiting which was intractable with epigastric discomfort diarrhea unable to keep anything down for two three days. Patient's white count was found to be high 21.4 in the ER abdominal CAT scan showed some sophia pelvic fluid no abdominal or pelvic findings. Denied any unusual food ingestion no history of any travel Past Medical History None Past Surgical History None Family History: Alcoholism G8 FATHER Diabetes mellitus G8 MOTHER Family History Non contributory Social History Denies smoking or drinking Allergies: Coded Allergies: No Known Drug Allergy (Verified Allergy, Unknown, 07/26/24) Current Medications Current Medications Medications (Trade) Dose Ordered Sig/Gee Route PRN Reason Start Time Stop Time Status Last Admin Vancomycin HCl 250 ml @ 200 mls/hr Q16H IV 07/28/24 10:00 07/28/24 13:22 Potassium Chloride 100 ml @ 50 mls/hr Q2H IV 07/28/24 12:15 07/28/24 18:14 DC 07/28/24 17:41 Review of Systems Noncontributory Vital Signs Vital Signs Date Time Temp Pulse Resp B/P (MAP) Pulse Ox O2 Delivery O2 Flow Rate FiO2 07/28/24 17:00 98.0 62 16 144/97 (113) 100 98.0 07/28/24 08:00 Room Air* 0 21 Physical Exam Thin built male in no acute distress Looks dehydrated Vitals stable Lungs are clear Unremarkable cardiovascular Abdomen is soft mild tenderness in the epigastrium no rigidity no guarding no mass Bowel sounds are normal Extremity no edema no varicosities no clubbing Labs/Diagnostic Data Labs Test 07/28/24 16:27 07/28/24 06:22 07/27/24 09:37 07/27/24 02:30 Range/Units Lactic Acid Level 0.9 0.4-2.0 mmol/L White Blood Count 11.1 #H 4.4-10.8 10^3/uL Red Blood Count 4.61 4.0-5.20 10^6/uL Hemoglobin 14.1 12.2-16.2 g/dL Hematocrit 41.6 36.0-46.0 % Mean Corpuscular Volume 90.3 80.0-100.0 fL Mean Corpuscular Hemoglobin 30.6 28.0-32.0 pg Mean Corpuscular Hemoglobin Concent 33.9 32.0-36.0 g/dL Red Cell Distribution Width 13.0 11.8-14.3 % Platelet Count 188 140-450 10^3/uL Mean Platelet Volume 7.7 6.9-10.8 fL Neutrophils (%) (Auto) 75.2 37.0-80.0 % Lymphocytes (%) (Auto) 14.6 10.0-50.0 % Monocytes (%) (Auto) 9.7 0.0-12.0 % Eosinophils (%) (Auto) 0.1 0.0-7.0 % Basophils (%) (Auto) 0.4 0.0-2.0 % Neutrophils # (Auto) 8.4 1.6-8.6 10 ^3/uL Lymphocytes # (Auto) 1.6 0.4-5.4 10 ^3/uL Monocytes # (Auto) 1.1 0-1.3 10 ^3/uL Eosinophils # (Auto) 0 0-0.8 10 ^3/uL Basophils # (Auto) 0 0-0.2 10 ^3/uL Nucleated Red Blood Cells 0.1 % Sodium Level 142 136-145 mmol/L Potassium Level 2.9 L 3.5-5.1 mmol/L Chloride Level 104 98-107 mmol/L Carbon Dioxide Level 25 20-31 mmol/L Anion Gap 13 5-15 Blood Urea Nitrogen 7 #L 9-23 mg/dL Creatinine 0.87 0.550-1.02 mg/dL Glomerular Filtration Rate Calc 97 >90 mL/min BUN/Creatinine Ratio 8.0 L 10.0-20.0 Serum Glucose 100 74-106 mg/dL Calcium Level 9.6 8.7-10.4 mg/dL Total Bilirubin 0.7 0.2-1.0 mg/dL Aspartate Amino Transferase (AST) 46 H 13-40 U/L Alanine Aminotransferase (ALT) 22 7-40 U/L Alkaline Phosphatase 76 46-116 U/L Total Protein 6.7 5.7-8.2 g/dL Albumin 4.4 3.2-4.8 g/dL Random Vancomycin Level < 3.0 L 5-10 ug/mL Urine Color Colorless Yellow Urine Clarity Turbid H Clear Urine pH 7.0 5.0-9.0 Urine Specific [place] 1.015 1.001-1.035 Urine Protein Negative Negative Urine Ketones 1+ H Negative Urine Blood Negative Negative /uL Urine Nitrite Negative Negative Urine Bilirubin Negative Negative Urine Urobilinogen Normal Negative mg/dL Urine Leukocyte Esterase 3+ Negative /uL Urine RBC 6 0 - 4 /hpf Urine Microscopic WBC 9 H 0-5 /HPF Urine Squamous Epithelial Cells Mod <5 /hpf Urine Bacteria Few H None Seen /hpf Urine Glucose Normal Normal mg/dL Urine Test Negative Negative Beta HCG, Quantitative 0.1 L 1.5-4.2 mIU/mL Test 07/27/24 02:25 07/26/24 23:31 Range/Units Influenza Type A Antigen Negative Negative Influenza Type B Antigen Negative Negative SARS-CoV-2 Antigen (Rapid) Negative NEGATIVE Group A Streptococcus Rapid Negative Magnesium Level 1.8 1.6-2.6 mg/dL Microbiology Date/Time Source Procedure Growth Status 07/27/24 02:33 Blood Blood Culture - Preliminary NO GROWTH AFTER 24 HOURS OF INCUBATION. Resulted 07/27/24 02:25 Throat Nose/Throat Culture - Preliminary Resulted Assessment Labs showed that the white count is slightly increased beta hCG is negative hemoglobin 17.1 white count is 21.4 CT scan was unremarkable except for some little fluid in the pelvic area Possible infection as far also can not be excluded clinical impression is possible gastroenteritis Plan/Recommendation Recommend stool studies Blood culture in case any fever Follow white count Symptomatic treatment and see the response If symptoms persist may need further evaluations Thank you Dr. Miya Mensah discussed with: Patient SURESH SHETH MD Jul 28, 2024 18:38
[2024-07-29] VITALS (9 sets, daily range): BP systolic 115–129; BP diastolic 67–92; PULSE 57–89; RESP 15–19; TEMP 98–98.6; O2SAT 98–99
[2024-07-29] MEDS: METOCLOPRAMIDE HCL 5MG/ml INJ 2ml VIAL IV ONE (01:41)
[2024-07-29 06:55] LABS: Basophils # (auto) 0 10 ^3/uL (0-0.2); Basophils % (auto) 0.5 % (0.0-2.0); Eosinophils # (auto) 0 10 ^3/uL (0-0.8); Eosinophils % (auto) 0.1 % (0.0-7.0); Hematocrit 40.3 % (36.0-46.0); Hemoglobin 13.7 g/dL (12.2-16.2); Lymphocytes # (auto) 1.5 10 ^3/uL (0.4-5.4); Lymphocytes % (auto) 14.7 % (10.0-50.0); Mean Corpuscular Hgb Conc. 34.1 g/dL (32.0-36.0); Mean Corpuscular Volume 90.8 fL (80.0-100.0); Monocytes # (auto) 0.9 10 ^3/uL (0-1.3); Monocytes % (auto) 9.4 % (0.0-12.0); Neutrophils # (auto) 7.5 10 ^3/uL (1.6-8.6); Neutrophils % (auto) 75.3 % (37.0-80.0); Platelet Count (auto) 183 10^3/uL (140-450); Red Blood Cells 4.43 10^6/uL (4.0-5.20); Red Cell Distribution Width 12.9 % (11.8-14.3)
[2024-07-29 06:59] LABS: Alanine Aminotransferase 20 U/L (7-40); Albumin 4.1 g/dL (3.2-4.8); Alkaline Phosphatase 64 U/L (46-116); Anion Gap 12 (5-15); BUN/Creatinine Ratio 14.1 (10.0-20.0); Blood Urea Nitrogen 10 mg/dL (9-23); Carbon Dioxide 22 mmol/L (20-31); Chloride 106 mmol/L (98-107); Glucose 99 mg/dL (74-106); Sodium 140 mmol/L (136-145); Total Protein 6.3 g/dL (5.7-8.2)
[2024-07-29 07:00] LABS: Bilirubin, Total 0.6 mg/dL (0.2-1.0)
[2024-07-29 07:03] LABS: Calcium 8.6 mg/dL (8.7-10.4); Potassium 3.1 mmol/L (3.5-5.1)
[2024-07-29 07:28] LABS: Aspartate Aminotransferase 35 U/L (13-40)
[2024-07-29] MEDS: METOCLOPRAMIDE HCL 5MG/ml INJ 2ml VIAL IV PRN (12:29)
--- NOTE | 2024-07-29 18:23 | DVHPN2 ---
Subjective Overnight events noted. Patient is still complaining of nausea and vomiting. Changes from previous H/P or p: No Changes Eyes: No Pain, No Vision change, No Conjunctivae inflammation, No Eyelid inflammation, No Other, No Redness ENT: No Ear pain, No Ear discharge, No Nose pain, No Nose discharge, No Nose congestion, No Mouth pain, No Mouth swelling, No Throat pain, No Throat swelling, No Other Cardiovascular: No Chest Pain, No Palpitations, No Orthopnea, No Paroxysmal Noc. Dyspnea, No Edema, No Lt Headedness, No Other Respiratory: No Cough, No Dry, No Shortness of breath, No SOB with excertion, No Wheezing, No Hemoptysis, No Pleuritic Pain, No Sputum, No Other Gastrointestinal: Nausea, Vomiting, Abdominal Pain, Diarrhea; No Constipation, No Melena, No Hematochezia, No Other Genitourinary: No Dysuria, No Frequency, No Incontinence, No Hematuria, No Retention, No Other Musculoskeletal: No other, No neck pain, No shoulder pain, No arm pain, No back pain, No hand pain, No leg pain, No foot pain Skin: No Rash, No Lesions, No Jaundice, No Bruising, No Other Objective Vitals Vital Signs Date Time Temp Pulse Resp B/P (MAP) Pulse Ox O2 Delivery O2 Flow Rate FiO2 07/29/24 17:00 98.5 65 15 122/85 (97) 98 98.5 07/29/24 08:30 Room Air* 0 21 Intake/Output Intake and Output 07/29/24 07:00 Intake Total 1525 ml Balance 1525 ml Intake Oral 425 ml IV Total 1100 ml # Voids 4 Exam HEENT pupils are reactive Neck is supple CV is S1-S2 regular rate and rhythm Respiratory are clear GI posterior bowel sound Extremity no edema DIRECTOR OF MARKET INTELLIGENCE no motor deficit Medications Current Medications Medications Dose Ordered Sig/Gee Route Start Time Stop Time Status Last Admin Dose Admin Pantoprazole Sodium 40 mg DAILY IV 07/27/24 10:00 07/29/24 09:05 40 MG Piperacillin Sod/ Tazobactam Sod 100 ml @ 25 mls/hr Q8HR@0200,1000,1800 IV 07/27/24 10:00 07/29/24 09:06 25 MLS/HR Vancomycin HCl 0 ml @ 0 mls/hr UD IV 07/27/24 06:15 Acetaminophen/ Hydrocodone Bitart 1 tab Q4HP PRN PO 07/27/24 06:15 07/28/24 22:57 1 TAB Ondansetron HCl 4 mg Q4HP PRN IV 07/27/24 06:15 07/29/24 03:11 4 MG Docusate Sodium 100 mg BIDPRN PRN PO 07/27/24 06:15 Acetaminophen 650 mg Q6HP PRN PO 07/27/24 06:15 Nitroglycerin 0.4 mg Q5MINP PRN SL 07/27/24 06:15 07/27/24 20:28 0.4 MG Morphine Sulfate 2 mg Q30M PRN IV 07/27/24 06:15 Sodium Chloride 1,000 ml @ 150 mls/hr Q6H40M IV 07/27/24 15:00 07/29/24 06:56 150 MLS/HR Vancomycin HCl 250 ml @ 200 mls/hr Q16H IV 07/28/24 10:00 07/29/24 17:22 200 MLS/HR Metoclopramide HCl 10 mg Q8HPRN PRN IV 07/29/24 16:15 Potassium Chloride 100 ml @ 50 mls/hr Q2H IV 07/29/24 16:30 07/29/24 22:29 Laboratory Results Laboratory Tests 07/29/24 06:20 Chemistry Test 07/29/24 06:20 Albumin 4.1 g/dL (3.2-4.8) Calcium Level 8.6 mg/dL (8.7-10.4) L Total Protein 6.3 g/dL (5.7-8.2) LFT Test 07/29/24 06:20 Alanine Aminotransferase (ALT) 20 U/L (7-40) Alkaline Phosphatase 64 U/L (46-116) Aspartate Amino Transferase (AST) 35 U/L (13-40) Total Bilirubin 0.6 mg/dL (0.2-1.0) Urinalysis Test 07/27/24 09:37 Urine Color Colorless (Yellow) Urine Clarity Turbid (Clear) H Urine pH 7.0 (5.0-9.0) Urine Specific [place] 1.015 (1.001-1.035) Urine Protein Negative (Negative) Urine Ketones 1+ (Negative) H Urine Blood Negative /uL (Negative) Urine Nitrite Negative (Negative) Urine Bilirubin Negative (Negative) Urine Urobilinogen Normal mg/dL (Negative) Urine Leukocyte Esterase 3+ /uL (Negative) Urine RBC 6 /hpf (0 - 4) Urine Microscopic WBC 9 /HPF (0-5) H Urine Squamous Epithelial Cells Mod /hpf (<5) Urine Bacteria Few /hpf (None Seen) H Urine Glucose Normal mg/dL (Normal) Urine Test Negative (Negative) Microbiology Microbiology Date/Time Source Procedure Growth Status 07/27/24 02:33 Blood Blood Culture - Preliminary NO GROWTH AFTER 48 HOURS OF INCUBATION. Resulted 07/27/24 02:25 Throat Nose/Throat Culture - Final Complete Assessment/Plan Assessment/Plan 73-year-old female initiation with the hospital with the abdominal pain nausea vomiting found to have 1. Abdominal pain nausea vomiting suspect acute gastroenteritis 2. Lactic acidosis 3. Leukocytosis likely reactive 4. Pelvic small Cul de sac fluid -clear liquid diet as tolerated IV Zofran, patient was requesting IV Reglan and Zofran is not working. Side effects of Reglan including total QRS and other DIRECTOR OF MARKET INTELLIGENCE side effects explained with the patient in detail who understand verbalized the understanding and agreeable-to plan GI consultation-appreciated -gynecology consultation for incidental finding of pelvic Cul de sac small fluid although clinical suspicion is low for any pathology Plan discussed with: Patient My Orders Orders - THOM FLOYD MD Procedure Category Date Status Time Metoclopramide PHA 07/29/24 In Process Injection (Reglan 16:15 Soft Diet DIET 07/29/24 Transmitted Dinner Potassium Chl PHA 07/29/24 In Process 20meq/100ml 16:30 * Drapery Maker Consultation CONS 07/29/24 Transmitted 18:21 Date of Service: Jul 29, 2024 Billing Provider: THOM FLOYD MD Common Visit Codes: [id number] INP/OBS CARE(MOD) THOM FLOYD MD Jul 29, 2024 18:23
[2024-07-29] MEDS: POTASSIUM CHL 20MEQ/100ML 100 ML IV SCH (18:42)
[2024-07-30] VITALS (7 sets, daily range): BP systolic 118–154; BP diastolic 79–99; PULSE 60–92; RESP 17–20; TEMP 97–99.2; O2SAT 97–100
[2024-07-30] MEDS: METOCLOPRAMIDE HCL 5MG/ml INJ 2ml VIAL IV PRN (08:35)
--- NOTE | 2024-07-30 08:55 | ECG ---
[facility] Test Date: 2024-07-30 Test Time: 08:51:00 Pat Name: GAB ERVIN Department: Respiratoy Room: 0221T B Gender: F What Job Titles Mean: DESTINEE : 2000 Requested By: THOM FLOYD Order Number: [id number] Reading MD: Alvaro Gant Measurements Intervals [place] Rate: 70 P: 49 OR: 121 QRS: 85 QRSD: 91 T: 57 QT: 415 QTc: 448 Interpretive Statements Sinus rhythm Baseline wander in lead(s) V2 Electronically Signed On 07-30-2024 20:21:51 PDT by Alvaro Gant Please click the below link to view image of tracing.
[2024-07-30 09:34] LABS: Basophils # (auto) 0.1 10 ^3/uL (0-0.2); Basophils % (auto) 0.7 % (0.0-2.0); Eosinophils # (auto) 0 10 ^3/uL (0-0.8); Eosinophils % (auto) 0.4 % (0.0-7.0); Hematocrit 40.9 % (36.0-46.0); Hemoglobin 13.8 g/dL (12.2-16.2); Lymphocytes # (auto) 1.9 10 ^3/uL (0.4-5.4); Lymphocytes % (auto) 24.6 % (10.0-50.0); Mean Corpuscular Hemoglobin 30.3 pg (28.0-32.0); Mean Corpuscular Hgb Conc. 33.8 g/dL (32.0-36.0); Mean Corpuscular Volume 89.6 fL (80.0-100.0); Monocytes # (auto) 0.6 10 ^3/uL (0-1.3); Monocytes % (auto) 8.1 % (0.0-12.0); Neutrophils # (auto) 5.1 10 ^3/uL (1.6-8.6); Neutrophils % (auto) 66.2 % (37.0-80.0); Platelet Count (auto) 210 10^3/uL (140-450); Red Blood Cells 4.56 10^6/uL (4.0-5.20); White Blood Cell 7.7 10^3/uL (4.4-10.8)
[2024-07-30 09:44] LABS: Alanine Aminotransferase 23 U/L (7-40); Albumin 4.2 g/dL (3.2-4.8); Alkaline Phosphatase 68 U/L (46-116); Anion Gap 17 (5-15); Aspartate Aminotransferase 29 U/L (13-40); BUN/Creatinine Ratio 14.5 (10.0-20.0); Bilirubin, Total 0.7 mg/dL (0.2-1.0); Calcium 9.1 mg/dL (8.7-10.4); Chloride 107 mmol/L (98-107); Glucose 90 mg/dL (74-106); Magnesium 1.8 mg/dL (1.6-2.6); Sodium 142 mmol/L (136-145); Total Protein 6.4 g/dL (5.7-8.2)
[2024-07-30 09:45] LABS: Blood Urea Nitrogen 9 mg/dL (9-23); Carbon Dioxide 18 mmol/L (20-31); Potassium 2.9 mmol/L (3.5-5.1)
[2024-07-30] MEDS ORDERED: CLINIMIX PER PHARMACY 0 ML IV SCH (13:15)
--- NOTE | 2024-07-30 15:54 | DVHPN2 ---
Subjective Overnight events noted. Patient is still complaining of nausea and vomiting. Patient has stated that she does use chronic marijuana eventually patient's may have cyclic vomiting syndrome on top of gastroenteritis. We will obtain GI evaluation for possible EGD if indicated. Plan of care discussed with the bedside RN as well as patient she understand and agreeable to plan Changes from previous H/P or p: No Changes Eyes: No Pain, No Vision change, No Conjunctivae inflammation, No Eyelid inflammation, No Other, No Redness ENT: No Ear pain, No Ear discharge, No Nose pain, No Nose discharge, No Nose congestion, No Mouth pain, No Mouth swelling, No Throat pain, No Throat swelling, No Other Cardiovascular: No Chest Pain, No Palpitations, No Orthopnea, No Paroxysmal Noc. Dyspnea, No Edema, No Lt Headedness, No Other Respiratory: No Cough, No Dry, No Shortness of breath, No SOB with excertion, No Wheezing, No Hemoptysis, No Pleuritic Pain, No Sputum, No Other Gastrointestinal: Nausea, Vomiting, Abdominal Pain, Diarrhea; No Constipation, No Melena, No Hematochezia, No Other Genitourinary: No Dysuria, No Frequency, No Incontinence, No Hematuria, No Retention, No Other Musculoskeletal: No other, No neck pain, No shoulder pain, No arm pain, No back pain, No hand pain, No leg pain, No foot pain Skin: No Rash, No Lesions, No Jaundice, No Bruising, No Other Objective Vitals Vital Signs Date Time Temp Pulse Resp B/P (MAP) Pulse Ox O2 Delivery O2 Flow Rate FiO2 07/30/24 09:00 97.0 62 19 152/99 (116) 100 97.0 07/30/24 08:30 Room Air* 0 21 Intake/Output Intake and Output 07/30/24 07:00 Intake Total 2750 ml Balance 2750 ml Intake Oral 1250 ml IV Total 1500 ml # Voids 5 # Bowel Movements 2 Exam HEENT pupils are reactive Neck is supple CV is S1-S2 regular rate and rhythm Respiratory are clear GI posterior bowel sound Extremity no edema RESIDENTIAL 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 no motor deficit Medications Current Medications Medications Dose Ordered Sig/Gee Route Start Time Stop Time Status Last Admin Dose Admin Piperacillin Sod/ Tazobactam Sod 100 ml @ 25 mls/hr Q8HR@0200,1000,1800 IV 07/27/24 10:00 07/30/24 08:36 25 MLS/HR Vancomycin HCl 0 ml @ 0 mls/hr UD IV 07/27/24 06:15 Acetaminophen/ Hydrocodone Bitart 1 tab Q4HP PRN PO 07/27/24 06:15 07/28/24 22:57 1 TAB Ondansetron HCl 4 mg Q4HP PRN IV 07/27/24 06:15 07/30/24 09:12 4 MG Docusate Sodium 100 mg BIDPRN PRN PO 07/27/24 06:15 Acetaminophen 650 mg Q6HP PRN PO 07/27/24 06:15 Nitroglycerin 0.4 mg Q5MINP PRN SL 07/27/24 06:15 07/27/24 20:28 0.4 MG Morphine Sulfate 2 mg Q30M PRN IV 07/27/24 06:15 Sodium Chloride 1,000 ml @ 150 mls/hr Q6H40M IV 07/27/24 15:00 07/30/24 05:10 150 MLS/HR Vancomycin HCl 250 ml @ 200 mls/hr Q16H IV 07/28/24 10:00 07/30/24 08:35 200 MLS/HR Pantoprazole Sodium 40 mg BID IV 07/30/24 22:00 Amino Acids 0 ml @ 0 mls/hr PER PHARMACY IV 07/30/24 13:15 Diagnostic Test (Pha) 1 strip Q6HR 07/31/24 00:00 Insulin Human Regular FOLLOW SLIDING SCALE Q6HR SC 07/31/24 00:00 Dextrose 50 ml UD IV 07/31/24 00:00 Amino Acids/ Electrolytes/ Dextrose 1,000 ml @ 41 mls/hr DAILY@2200 IV 07/30/24 22:00 Potassium Chloride 100 ml @ 50 mls/hr Q2H IV 07/30/24 15:15 07/30/24 23:14 Laboratory Results Laboratory Tests 07/30/24 09:11 Chemistry Test 07/30/24 09:11 Albumin 4.2 g/dL (3.2-4.8) Calcium Level 9.1 mg/dL (8.7-10.4) Magnesium Level 1.8 mg/dL (1.6-2.6) Phosphorus Level Pending Total Protein 6.4 g/dL (5.7-8.2) LFT Test 07/30/24 09:11 Alanine Aminotransferase (ALT) 23 U/L (7-40) Alkaline Phosphatase 68 U/L (46-116) Aspartate Amino Transferase (AST) 29 U/L (13-40) Total Bilirubin 0.7 mg/dL (0.2-1.0) Urinalysis Test 07/27/24 09:37 Urine Color Colorless (Yellow) Urine Clarity Turbid (Clear) H Urine pH 7.0 (5.0-9.0) Urine Specific [place] 1.015 (1.001-1.035) Urine Protein Negative (Negative) Urine Ketones 1+ (Negative) H Urine Blood Negative /uL (Negative) Urine Nitrite Negative (Negative) Urine Bilirubin Negative (Negative) Urine Urobilinogen Normal mg/dL (Negative) Urine Leukocyte Esterase 3+ /uL (Negative) Urine RBC 6 /hpf (0 - 4) Urine Microscopic WBC 9 /HPF (0-5) H Urine Squamous Epithelial Cells Mod /hpf (<5) Urine Bacteria Few /hpf (None Seen) H Urine Glucose Normal mg/dL (Normal) Urine Test Negative (Negative) Microbiology Microbiology Date/Time Source Procedure Growth Status 07/27/24 02:33 Blood Blood Culture - Preliminary NO GROWTH AFTER 72 HOURS OF INCUBATION. Resulted 07/27/24 02:25 Throat Nose/Throat Culture - Final Complete Assessment/Plan Assessment/Plan 73-year-old female initiation with the hospital with the abdominal pain nausea vomiting found to have 1. Abdominal pain nausea vomiting suspect cyclic vomiting syndrome 2. Acute gastroenteritis, patient denies any diarrhea 2. Lactic acidosis, resolved 3. Leukocytosis likely reactive 4. Pelvic small Cul de sac fluid -clear liquid diet as tolerated IV Zofran, patient was requesting IV Reglan and Zofran is not working. 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 side effects explained with the patient in detail who understand verbalized the understanding and agreeable-to plan GI consultation-appreciated -gynecology consultation for incidental finding of pelvic Cul de sac small fluid although clinical suspicion is low for any pathology Plan discussed with: Patient My Orders Orders - THOM FLOYD MD Procedure Category Date Status Time Soft Diet DIET 07/29/24 Transmitted Dinner * Assistant Auditor Consultation CONS 07/29/24 Transmitted 18:21 Electrocardigram EKG 07/30/24 Logged 09:52 Pantoprazole PHA 07/30/24 In Process (Protonix) 22:00 Clinimix Per Pharmacy PHA 07/30/24 In Process 13:15 Glucose Blood PHA 07/31/24 In Process (Accu-Chek Comfort 00:00 Insulin R (Human) PHA 07/31/24 In Process (Insulin R) 00:00 Dextrose 50% Syringe PHA 07/31/24 In Process 00:00 Amino Acid Infusion PHA 07/30/24 In Process In D10w (Clinimix 4. 22:00 Phosphorus LAB 07/30/24 In Process 15:10 * Dietary Consult CONS 07/30/24 Transmitted 15:10 Renal Function Test LAB 07/31/24 Verified 05:00 Magnesium LAB 07/31/24 Verified 05:00 Potassium Chl PHA 07/30/24 In Process 20meq/100ml 15:15 Clinimix Per Pharmacy [facility] 07/30/24 In Process 22:00 Date of Service: Jul 30, 2024 Billing Provider: THOM FLOYD MD Common Visit Codes: [id number] INP/OBS CARE(MOD) THOM FLOYD MD Jul 30, 2024 15:54
[2024-07-30] MEDS: POTASSIUM CHL 20MEQ/100ML 100 ML IV SCH ×2 (16:53→23:31)
[2024-07-30] MEDS: PANTOPRAZOLE 40 MG/10 ML VIAL INJ IV SCH (21:08)
[2024-07-30] MEDS: AMINO ACID INFUSION IN D10W 1,000 ML IV SCH (22:15)
[2024-07-31] VITALS (9 sets, daily range): BP systolic 117–141; BP diastolic 80–88; PULSE 56–78; RESP 15–20; TEMP 97.8–99.1; O2SAT 97–100
[2024-07-31] MEDS: InsuLIN REG 1unit/0.01ml Soln (100units/ml) SC SCH
[2024-07-31] MEDS ORDERED: DEXTROSE (50%) 50ML SYRG IV SCH
[2024-07-31] MEDS: ACCU-CHEK COMFORT CURVE STRIP VI SCH (00:38)
[2024-07-31 01:58] LABS: Calcium 8.2 mg/dL (8.7-10.4); Potassium 3.5 mmol/L (3.5-5.1)
[2024-07-31 02:03] LABS: BUN/Creatinine Ratio 11.9 (10.0-20.0)
[2024-07-31 02:04] LABS: Magnesium 1.8 mg/dL (1.6-2.6)
[2024-07-31 02:05] LABS: Albumin 3.8 g/dL (3.2-4.8)
[2024-07-31 02:07] LABS: Phosphorus 2.3 mg/dL (2.4-5.1)
[2024-07-31] MEDS ORDERED: VANCOMYCIN 1.25GM/250ML 250 ML IV SCH ×3 (09:00→14:00)
[2024-07-31] MEDS: SODIUM PHOSPHATES 24 MEQ in SODIUM CHL 0.9% 100 ML IV ONE (12:39)
--- NOTE | 2024-07-31 12:46 | DVHINCON2 ---
Date of service: Jul 31, 2024 Referring Physician hospitalist Reason for Consultation pt is admitted for abd apin,n,v and dehydration.pt denies any abnormal vag bleeding or abnormal vag discharge.ct reveals nl pelvic findings with small amount of fluid in the cul desac History of Present Illness none Past Medical History none Past Surgical History none Family History na Social History na Patient Family History: Alcoholism G8 FATHER Diabetes mellitus G8 MOTHER Allergies: Coded Allergies: No Known Drug Allergy (Verified Allergy, Unknown, 07/26/24) Current Medications Current Medications Medications (Trade) Dose Ordered Sig/Gee Route PRN Reason Start Time Stop Time Status Last Admin Pantoprazole Sodium (Protonix) 40 mg BID IV 07/30/24 22:00 07/31/24 09:24 Amino Acids 0 ml @ 0 mls/hr PER PHARMACY IV 07/30/24 13:15 Diagnostic Test (Pha) (Accu-Chek Comfort Curve T) 1 strip Q6HR 07/31/24 00:00 07/31/24 11:24 Insulin Human Regular (InsuLIN R) FOLLOW SLIDING SCALE Q6HR SC 07/31/24 00:00 Dextrose 50 ml UD IV 07/31/24 00:00 Amino Acids/ Electrolytes/ Dextrose 1,000 ml @ 41 mls/hr DAILY@2200 IV 07/30/24 22:00 07/30/24 22:15 Potassium Chloride 100 ml @ 50 mls/hr Q2H IV 07/30/24 15:15 07/30/24 19:20 DC 07/30/24 19:12 Potassium Chloride 100 ml @ 50 mls/hr Q2H IV 07/31/24 00:00 07/31/24 03:59 DC 07/31/24 01:30 Vancomycin HCl 250 ml @ 200 mls/hr Q12H IV 07/31/24 09:00 07/31/24 09:43 DC Vancomycin HCl 250 ml @ 200 mls/hr Q12H IV 07/31/24 14:00 UNV Vancomycin HCl 250 ml @ 200 mls/hr Q12H IV 07/31/24 14:00 07/31/24 10:09 DC Vancomycin HCl 250 ml @ 200 mls/hr Q12H IV 07/31/24 14:00 Review of Systems Constitutional: no fever, chill, weight loss HEENT: no eye pain, no hearing loss, no oral lesion, no scleral icterus Heart: no chest pain, no chest pressure Lung: no cough, no dyspnea with exertion Abdomen: see HPI : no pain with urination, normal appearing urine Musculoskeletal: no joint pain, no muscle pain Neurological: no seizure, no loss of sensation, no weakness in extremities Pysch: no depression, no anxiety Derm: no rash, no jaundice Vital Signs Vital Signs Date Time Temp Pulse Resp B/P (MAP) Pulse Ox O2 Delivery O2 Flow Rate FiO2 07/31/24 08:20 78 17 100 Room Air* 0 21 07/31/24 05:00 98.3 117/84 (95) 98.3 Physical Exam SKIN: [nl] HEENT: [nl] NECK: [nl] CARDIAC: [rrr] PULMONARY: [cta ABDOMEN: [soft,ny ] pelvic- nl ext genitalia,vag nl,cx nl,uterus nl size,adenxa nl NEURO: [nl] Labs/Diagnostic Data Labs Test 07/31/24 11:19 07/31/24 01:18 07/30/24 09:11 07/28/24 16:27 Range/Units POC Glucose 104 70-106 mg/dl Sodium Level 139 136-145 mmol/L Potassium Level 3.5 3.5-5.1 mmol/L Chloride Level 107 98-107 mmol/L Carbon Dioxide Level 20 20-31 mmol/L Anion Gap 12 5-15 Blood Urea Nitrogen 7 L 9-23 mg/dL Creatinine 0.59 0.550-1.02 mg/dL Estimated GFR () 164 mL/min Estimated GFR (Non- 135 mL/min BUN/Creatinine Ratio 11.9 10.0-20.0 Serum Glucose 101 74-106 mg/dL Calcium Level 8.2 L 8.7-10.4 mg/dL Phosphorus Level 2.3 L 2.4-5.1 mg/dL Magnesium Level 1.8 1.6-2.6 mg/dL Albumin 3.8 3.2-4.8 g/dL Vancomycin Level Trough < 3.0 L 5-10 ug/mL White Blood Count 7.7 4.4-10.8 10^3/uL Red Blood Count 4.56 4.0-5.20 10^6/uL Hemoglobin 13.8 12.2-16.2 g/dL Hematocrit 40.9 36.0-46.0 % Mean Corpuscular Volume 89.6 80.0-100.0 fL Mean Corpuscular Hemoglobin 30.3 28.0-32.0 pg Mean Corpuscular Hemoglobin Concent 33.8 32.0-36.0 g/dL Red Cell Distribution Width 13.0 11.8-14.3 % Platelet Count 210 140-450 10^3/uL Mean Platelet Volume 7.8 6.9-10.8 fL Neutrophils (%) (Auto) 66.2 37.0-80.0 % Lymphocytes (%) (Auto) 24.6 10.0-50.0 % Monocytes (%) (Auto) 8.1 0.0-12.0 % Eosinophils (%) (Auto) 0.4 0.0-7.0 % Basophils (%) (Auto) 0.7 0.0-2.0 % Neutrophils # (Auto) 5.1 1.6-8.6 10 ^3/uL Lymphocytes # (Auto) 1.9 0.4-5.4 10 ^3/uL Monocytes # (Auto) 0.6 0-1.3 10 ^3/uL Eosinophils # (Auto) 0 0-0.8 10 ^3/uL Basophils # (Auto) 0.1 0-0.2 10 ^3/uL Nucleated Red Blood Cells 0.0 % Glomerular Filtration Rate Calc 129 >90 mL/min Total Bilirubin 0.7 0.2-1.0 mg/dL Aspartate Amino Transferase (AST) 29 13-40 U/L Alanine Aminotransferase (ALT) 23 7-40 U/L Alkaline Phosphatase 68 46-116 U/L Troponin I High Sensitivity 7 </=34 ng/L Total Protein 6.4 5.7-8.2 g/dL Lactic Acid Level 0.9 0.4-2.0 mmol/L Test 07/28/24 06:22 07/27/24 09:37 07/27/24 02:30 07/27/24 02:25 Range/Units Random Vancomycin Level < 3.0 L 5-10 ug/mL Urine Color Colorless Yellow Urine Clarity Turbid H Clear Urine pH 7.0 5.0-9.0 Urine Specific [place] 1.015 1.001-1.035 Urine Protein Negative Negative Urine Ketones 1+ H Negative Urine Blood Negative Negative /uL Urine Nitrite Negative Negative Urine Bilirubin Negative Negative Urine Urobilinogen Normal Negative mg/dL Urine Leukocyte Esterase 3+ Negative /uL Urine RBC 6 0 - 4 /hpf Urine Microscopic WBC 9 H 0-5 /HPF Urine Squamous Epithelial Cells Mod <5 /hpf Urine Bacteria Few H None Seen /hpf Urine Glucose Normal Normal mg/dL Urine Test Negative Negative Beta HCG, Quantitative 0.1 L 1.5-4.2 mIU/mL Influenza Type A Antigen Negative Negative Influenza Type B Antigen Negative Negative SARS-CoV-2 Antigen (Rapid) Negative NEGATIVE Group A Streptococcus Rapid Negative Microbiology Date/Time Source Procedure Growth Status 07/27/24 02:33 Blood Blood Culture - Preliminary NO GROWTH AFTER 72 HOURS OF INCUBATION. Resulted 07/27/24 02:25 Throat Nose/Throat Culture - Final Complete Primary Diagnosis abd pain,n/v ,dehydration improving 2' Diagnosis/Comorbidities fluid in pelvic culde sac Plan supportive care fu outpt no need for any bottom sprayer intervention will sign off thank you Plan discussed with: Patient Visit Coding OBGYN Date of Service: Jul 31, 2024 Billing Provider: ISABEL HURD DO RADIOGRAPHER TECHNOLOGIST Common Visit Codes: [id number] OBS CARE (HIGH) RADIOGRAPHER TECHNOLOGIST Consultation Codes: [id number] CONSULT <80MIN ISABEL HURD DO Jul 31, 2024 12:46
[2024-07-31] MEDS: VANCOMYCIN 1.25GM/250ML 250 ML IV SCH (13:42)
--- NOTE | 2024-07-31 14:44 | DVHPN2 ---
Subjective Patient is still complaining of dry heaves, GI has been consulted for possible endoscopy. Patient was explained that this probably cyclic vomiting syndrome because of chronic marijuana use. Changes from previous H/P or p: No Changes Eyes: No Pain, No Vision change, No Conjunctivae inflammation, No Eyelid inflammation, No Other, No Redness ENT: No Ear pain, No Ear discharge, No Nose pain, No Nose discharge, No Nose congestion, No Mouth pain, No Mouth swelling, No Throat pain, No Throat swelling, No Other Cardiovascular: No Chest Pain, No Palpitations, No Orthopnea, No Paroxysmal Noc. Dyspnea, No Edema, No Lt Headedness, No Other Respiratory: No Cough, No Dry, No Shortness of breath, No SOB with excertion, No Wheezing, No Hemoptysis, No Pleuritic Pain, No Sputum, No Other Gastrointestinal: Nausea, Vomiting, Abdominal Pain, Diarrhea; No Constipation, No Melena, No Hematochezia, No Other Genitourinary: No Dysuria, No Frequency, No Incontinence, No Hematuria, No Retention, No Other Musculoskeletal: No other, No neck pain, No shoulder pain, No arm pain, No back pain, No hand pain, No leg pain, No foot pain Skin: No Rash, No Lesions, No Jaundice, No Bruising, No Other Objective Vitals Vital Signs Date Time Temp Pulse Resp B/P (MAP) Pulse Ox O2 Delivery O2 Flow Rate FiO2 07/31/24 08:20 78 17 100 Room Air* 0 21 07/31/24 05:00 98.3 117/84 (95) 98.3 Intake/Output Intake and Output 07/31/24 07:00 Intake Total 1300 ml Balance 1300 ml Intake Oral 650 ml IV Total 650 ml # Voids 3 Exam HEENT pupils are reactive Neck is supple CV is S1-S2 regular rate and rhythm Respiratory are clear GI positive bowel sounds soft nondistended nontender no guarding no rigidity Extremity no edema POST PARTUM NURSE no motor 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 Medications Current Medications Medications Dose Ordered Sig/Gee Route Start Time Stop Time Status Last Admin Dose Admin Piperacillin Sod/ Tazobactam Sod 100 ml @ 25 mls/hr Q8HR@0200,1000,1800 IV 07/27/24 10:00 07/31/24 09:25 25 MLS/HR Vancomycin HCl 0 ml @ 0 mls/hr UD IV 07/27/24 06:15 Acetaminophen/ Hydrocodone Bitart 1 tab Q4HP PRN PO 07/27/24 06:15 07/28/24 22:57 1 TAB Ondansetron HCl 4 mg Q4HP PRN IV 07/27/24 06:15 07/30/24 21:08 4 MG Docusate Sodium 100 mg BIDPRN PRN PO 07/27/24 06:15 Acetaminophen 650 mg Q6HP PRN PO 07/27/24 06:15 Nitroglycerin 0.4 mg Q5MINP PRN SL 07/27/24 06:15 07/27/24 20:28 0.4 MG Morphine Sulfate 2 mg Q30M PRN IV 07/27/24 06:15 Sodium Chloride 1,000 ml @ 150 mls/hr Q6H40M IV 07/27/24 15:00 07/31/24 12:40 150 MLS/HR Pantoprazole Sodium 40 mg BID IV 07/30/24 22:00 07/31/24 09:24 40 MG Amino Acids 0 ml @ 0 mls/hr PER PHARMACY IV 07/30/24 13:15 Diagnostic Test (Pha) 1 strip Q6HR 07/31/24 00:00 07/31/24 11:24 1 STRIP Insulin Human Regular FOLLOW SLIDING SCALE Q6HR SC 07/31/24 00:00 Dextrose 50 ml UD IV 07/31/24 00:00 Amino Acids/ Electrolytes/ Dextrose 1,000 ml @ 41 mls/hr DAILY@2200 IV 07/30/24 22:00 07/30/24 22:15 41 MLS/HR Vancomycin HCl 250 ml @ 200 mls/hr Q12H IV 07/31/24 14:00 UNV Vancomycin HCl 250 ml @ 200 mls/hr Q12H IV 07/31/24 14:00 07/31/24 13:42 200 MLS/HR Laboratory Results Laboratory Tests 07/30/24 09:11 07/31/24 01:18 Chemistry Test 07/31/24 01:18 Albumin 3.8 g/dL (3.2-4.8) Calcium Level 8.2 mg/dL (8.7-10.4) L Magnesium Level 1.8 mg/dL (1.6-2.6) Phosphorus Level 2.3 mg/dL (2.4-5.1) L Urinalysis Test 07/27/24 09:37 Urine Color Colorless (Yellow) Urine Clarity Turbid (Clear) H Urine pH 7.0 (5.0-9.0) Urine Specific [place] 1.015 (1.001-1.035) Urine Protein Negative (Negative) Urine Ketones 1+ (Negative) H Urine Blood Negative /uL (Negative) Urine Nitrite Negative (Negative) Urine Bilirubin Negative (Negative) Urine Urobilinogen Normal mg/dL (Negative) Urine Leukocyte Esterase 3+ /uL (Negative) Urine RBC 6 /hpf (0 - 4) Urine Microscopic WBC 9 /HPF (0-5) H Urine Squamous Epithelial Cells Mod /hpf (<5) Urine Bacteria Few /hpf (None Seen) H Urine Glucose Normal mg/dL (Normal) Urine Test Negative (Negative) Microbiology Microbiology Date/Time Source Procedure Growth Status 07/27/24 02:33 Blood Blood Culture - Preliminary NO GROWTH AFTER 72 HOURS OF INCUBATION. Resulted 07/27/24 02:25 Throat Nose/Throat Culture - Final Complete Assessment/Plan Assessment/Plan 73-year-old female initiation with the hospital with the abdominal pain nausea vomiting found to have 1. Abdominal pain nausea vomiting suspect cyclic vomiting syndrome secondary to chronic marijuana use 2. Acute viral gastroenteritis, has been resolved 2. Lactic acidosis, resolved 3. Leukocytosis likely reactive 4. Pelvic small Cul de sac fluid 5. Chronic marijuana use -clear liquid diet as tolerated IV Zofran, GI follow up -gynecology consultation for incidental finding of pelvic Cul de sac small fluid although clinical suspicion is low for any pathology -plan of care discussed with the bedside EVANGELINA Doss. Plan discussed with: Patient, Other My Orders Orders - THOM FLOYD MD Procedure Category Date Status Time Glucose Blood PHA 07/31/24 In Process (Accu-Chek Comfort 00:00 Insulin R (Human) PHA 07/31/24 In Process (Insulin R) 00:00 Dextrose 50% Syringe PHA 07/31/24 In Process 00:00 Amino Acid Infusion PHA 07/30/24 In Process In D10w (Clinimix 4. 22:00 * Dietary Consult CONS 07/30/24 Transmitted 15:10 Clinimix Per Pharmacy [facility] 07/30/24 In Process 22:00 Comprehensive LAB 08/01/24 Verified Metabolic Panel 05:00 Phosphorus LAB 08/01/24 Verified 05:00 Magnesium LAB 6/13/25 Verified 05:00 Clinimix Per Pharmacy [facility] 07/31/24 In Process 22:00 Sodium Phosphates PHA 07/31/24 In Process 11:15 Date of Service: Jul 31, 2024 Billing Provider: THOM FLOYD MD Common Visit Codes: [id number] INP/OBS CARE(MOD) THOM FLOYD MD Jul 31, 2024 14:44
[2024-08-01] VITALS (8 sets, daily range): BP systolic 115–133; BP diastolic 78–98; PULSE 61–77; RESP 17–20; TEMP 97.6–98.8; O2SAT 97–100
[2024-08-01 06:36] LABS: Alanine Aminotransferase 19 U/L (7-40); Albumin 4.3 g/dL (3.2-4.8); Alkaline Phosphatase 65 U/L (46-116); Anion Gap 13 (5-15); Aspartate Aminotransferase 19 U/L (0-34); Calcium 9.2 mg/dL (8.7-10.4); Carbon Dioxide 24 mmol/L (20-31); Chloride 102 mmol/L (98-107); Magnesium 1.7 mg/dL (1.6-2.6); Sodium 139 mmol/L (136-145); Total Protein 6.6 g/dL (5.7-8.2)
[2024-08-01 06:37] LABS: Bilirubin, Total 0.5 mg/dL (0.2-1.0); Glucose 113 mg/dL (74-106); Potassium 2.7 mmol/L (3.5-5.1)
[2024-08-01 07:00] LABS: BUN/Creatinine Ratio 10.6 (10.0-20.0)
[2024-08-01 07:04] LABS: Blood Urea Nitrogen 7 mg/dL (9-23)
[2024-08-01] MEDS: POTASSIUM CHL 20 Meq TABLET PO ONE (11:00)
--- NOTE | 2024-08-01 14:04 | DVHPN2 ---
Subjective Patient was eating her lunch but when I enter the room she starts spitting up no vomiting. Nurse GI clinic was notified if patient can tolerate lunch today she can be discharged otherwise we will keep the patient. Changes from previous H/P or p: No Changes Eyes: No Pain, No Vision change, No Conjunctivae inflammation, No Eyelid inflammation, No Other, No Redness ENT: No Ear pain, No Ear discharge, No Nose pain, No Nose discharge, No Nose congestion, No Mouth pain, No Mouth swelling, No Throat pain, No Throat swelling, No Other Cardiovascular: No Chest Pain, No Palpitations, No Orthopnea, No Paroxysmal Noc. Dyspnea, No Edema, No Lt Headedness, No Other Respiratory: No Cough, No Dry, No Shortness of breath, No SOB with excertion, No Wheezing, No Hemoptysis, No Pleuritic Pain, No Sputum, No Other Gastrointestinal: Nausea, Vomiting, Abdominal Pain, Diarrhea; No Constipation, No Melena, No Hematochezia, No Other Genitourinary: No Dysuria, No Frequency, No Incontinence, No Hematuria, No Retention, No Other Musculoskeletal: No other, No neck pain, No shoulder pain, No arm pain, No back pain, No hand pain, No leg pain, No foot pain Skin: No Rash, No Lesions, No Jaundice, No Bruising, No Other Objective Vitals Vital Signs Date Time Temp Pulse Resp B/P (MAP) Pulse Ox O2 Delivery O2 Flow Rate FiO2 08/01/24 09:00 98.3 70 18 132/94 (107) 99 98.3 08/01/24 08:00 Room Air* 0 21 Intake/Output Intake and Output 08/01/24 07:00 Intake Total 3906 ml Balance 3906 ml Intake Oral 1100 ml IV Total 2806 ml # Voids 4 # Bowel Movements 1 Medications Current Medications Medications Dose Ordered Sig/Gee Route Start Time Stop Time Status Last Admin Dose Admin Acetaminophen/ Hydrocodone Bitart 1 tab Q4HP PRN PO 07/27/24 06:15 07/28/24 22:57 1 TAB Ondansetron HCl 4 mg Q4HP PRN IV 07/27/24 06:15 07/31/24 23:39 4 MG Docusate Sodium 100 mg BIDPRN PRN PO 07/27/24 06:15 Acetaminophen 650 mg Q6HP PRN PO 07/27/24 06:15 Nitroglycerin 0.4 mg Q5MINP PRN SL 07/27/24 06:15 07/27/24 20:28 0.4 MG Morphine Sulfate 2 mg Q30M PRN IV 07/27/24 06:15 Sodium Chloride 1,000 ml @ 150 mls/hr Q6H40M IV 07/27/24 15:00 07/31/24 18:29 150 MLS/HR Pantoprazole Sodium 40 mg BID IV 07/30/24 22:00 08/01/24 10:23 40 MG Amino Acids 0 ml @ 0 mls/hr PER PHARMACY IV 07/30/24 13:15 Diagnostic Test (Pha) 1 strip Q6HR 07/31/24 00:00 08/01/24 12:34 1 STRIP Insulin Human Regular FOLLOW SLIDING SCALE Q6HR SC 07/31/24 00:00 Dextrose 50 ml UD IV 07/31/24 00:00 Amino Acids/ Electrolytes/ Dextrose 1,000 ml @ 41 mls/hr DAILY@2200 IV 07/30/24 22:00 07/31/24 21:48 41 MLS/HR Vancomycin HCl 250 ml @ 200 mls/hr Q12H IV 07/31/24 14:00 UNV Laboratory Results Laboratory Tests 07/30/24 09:11 08/01/24 05:17 Chemistry Test 08/01/24 05:17 Albumin 4.3 g/dL (3.2-4.8) Calcium Level 9.2 mg/dL (8.7-10.4) Magnesium Level 1.7 mg/dL (1.6-2.6) Phosphorus Level 3.0 mg/dL (2.4-5.1) Total Protein 6.6 g/dL (5.7-8.2) LFT Test 08/01/24 05:17 Alanine Aminotransferase (ALT) 19 U/L (7-40) Alkaline Phosphatase 65 U/L (46-116) Aspartate Amino Transferase (AST) 19 U/L (0-34) Total Bilirubin 0.5 mg/dL (0.2-1.0) Urinalysis Test 07/27/24 09:37 Urine Color Colorless (Yellow) Urine Clarity Turbid (Clear) H Urine pH 7.0 (5.0-9.0) Urine Specific [place] 1.015 (1.001-1.035) Urine Protein Negative (Negative) Urine Ketones 1+ (Negative) H Urine Blood Negative /uL (Negative) Urine Nitrite Negative (Negative) Urine Bilirubin Negative (Negative) Urine Urobilinogen Normal mg/dL (Negative) Urine Leukocyte Esterase 3+ /uL (Negative) Urine RBC 6 /hpf (0 - 4) Urine Microscopic WBC 9 /HPF (0-5) H Urine Squamous Epithelial Cells Mod /hpf (<5) Urine Bacteria Few /hpf (None Seen) H Urine Glucose Normal mg/dL (Normal) Urine Test Negative (Negative) Microbiology Microbiology Date/Time Source Procedure Growth Status 07/27/24 02:33 Blood Blood Culture - Final NO GROWTH AFTER 5 DAYS OF INCUBATION. Complete 07/27/24 02:25 Throat Nose/Throat Culture - Final Complete Assessment/Plan Assessment/Plan 73-year-old female initiation with the hospital with the abdominal pain nausea vomiting found to have 1. Abdominal pain nausea vomiting suspect cyclic vomiting syndrome secondary to chronic marijuana use 2. Acute viral gastroenteritis, discontinue IV antibiotic 2. Lactic acidosis, resolved 3. Leukocytosis likely reactive 4. Pelvic small [place] fluid , gynecology evaluated the patient and signed off 5. Chronic marijuana use, marijuana cessation counseling -clear liquid diet as tolerated , IV Zofran for nausea and vomiting, GI follow up -gynecology consultation for incidental finding of pelvic [place] small fluid , no indication of any other workup as per gynecology -plan of care discussed with the bedside RN Carola. Plan discussed with: Patient, Other My Orders Orders - THOM FLOYD MD Procedure Category Date Status Time Potassium Chloride PHA 08/01/24 In Process (Potassium Chloride). 11:00 Basic Metabolic Panel LAB 08/02/24 Verified 06:00 Magnesium LAB 08/02/24 Verified 06:00 Phosphorus LAB 08/02/24 Verified 06:00 Transfer Service ORDERS 08/01/24 Transmitted 19:00 Date of Service: Aug 01, 2024 Billing Provider: THOM FLOYD MD Common Visit Codes: [id number] INP/OBS CARE(MOD) THOM FLOYD MD Aug 01, 2024 14:04
[2024-08-01] MEDS: POTASSIUM CHLORIDE 40 MEQ, LIDOCAINE 1% (LOCAL ANESTH.) 4 ML in SODIUM CHL 0.9% 250 ML IV ONE (15:08)
[2024-08-01] MEDS: POTASSIUM CHL 20MEQ/100ML 100 ML IV SCH (19:51)
[2024-08-02] VITALS (7 sets, daily range): BP systolic 114–132; BP diastolic 74–85; PULSE 72–91; RESP 16–19; TEMP 96.6–98.3; O2SAT 97–100
[2024-08-02 06:53] LABS: Calcium 8.4 mg/dL (8.7-10.4); Potassium 3.1 mmol/L (3.5-5.1)
[2024-08-02 06:58] LABS: Albumin 3.9 g/dL (3.2-4.8); Magnesium 1.8 mg/dL (1.6-2.6)
[2024-08-02 07:00] LABS: Phosphorus 2.5 mg/dL (2.4-5.1)
[2024-08-02] MEDS: POTASSIUM CHL 20MEQ/100ML 100 ML IV SCH (14:09)
--- NOTE | 2024-08-02 14:16 | DVHPN2 ---
Subjective Patient continues to have nausea and vomiting. Reviewed: Care Plan, H&P, Labs, Medications Changes from previous H/P or p: No Changes General: Per HPI Eyes: No Pain, No Vision change, No Conjunctivae inflammation, No Eyelid inflammation, No Other, No Redness ENT: No Ear pain, No Ear discharge, No Nose pain, No Nose discharge, No Nose congestion, No Mouth pain, No Mouth swelling, No Throat pain, No Throat swelling, No Other Cardiovascular: No Chest Pain, No Palpitations, No Orthopnea, No Paroxysmal Noc. Dyspnea, No Edema, No Lt Headedness, No Other Respiratory: No Cough, No Dry, No Shortness of breath, No SOB with excertion, No Wheezing, No Hemoptysis, No Pleuritic Pain, No Sputum, No Other Gastrointestinal: Nausea, Vomiting, Abdominal Pain, Diarrhea; No Constipation, No Melena, No Hematochezia, No Other Genitourinary: No Dysuria, No Frequency, No Incontinence, No Hematuria, No Retention, No Other Musculoskeletal: No other, No neck pain, No shoulder pain, No arm pain, No back pain, No hand pain, No leg pain, No foot pain Skin: No Rash, No Lesions, No Jaundice, No Bruising, No Other Objective Vitals Vital Signs Date Time Temp Pulse Resp B/P (MAP) Pulse Ox O2 Delivery O2 Flow Rate FiO2 08/02/24 13:00 98.3 72 16 114/80 (91) 99 98.3 08/02/24 08:00 Room Air* 0 21 Intake/Output Intake and Output 08/02/24 07:00 Intake Total 3518 ml Balance 3518 ml Intake Oral 1218 ml IV Total 2300 ml # Voids 4 # Bowel Movements 1 General Appearance: Alert, Oriented X3, Cooperative, mild distress HEENT: Atraumatic, PERRLA Lungs: Clear to auscultation, Normal air movement Cardiovascular: Normal S1, Normal S2 Abdomen: Normal bowel sounds, Soft, No tenderness Musculoskeletal: Normal sensory function, Normal motor function Neuro: Normal gait, Normal speech Psych/Mental Status: Mental status NL, Mood NL Medications Current Medications Medications Dose Ordered Sig/Gee Route Start Time Stop Time Status Last Admin Dose Admin Acetaminophen/ Hydrocodone Bitart 1 tab Q4HP PRN PO 07/27/24 06:15 07/28/24 22:57 1 TAB Ondansetron HCl 4 mg Q4HP PRN IV 07/27/24 06:15 08/01/24 14:18 4 MG Docusate Sodium 100 mg BIDPRN PRN PO 07/27/24 06:15 Acetaminophen 650 mg Q6HP PRN PO 07/27/24 06:15 Nitroglycerin 0.4 mg Q5MINP PRN SL 07/27/24 06:15 07/27/24 20:28 0.4 MG Morphine Sulfate 2 mg Q30M PRN IV 07/27/24 06:15 Sodium Chloride 1,000 ml @ 150 mls/hr Q6H40M IV 07/27/24 15:00 08/02/24 09:39 150 MLS/HR Pantoprazole Sodium 40 mg BID IV 07/30/24 22:00 08/02/24 09:39 40 MG Amino Acids 0 ml @ 0 mls/hr PER PHARMACY IV 07/30/24 13:15 Diagnostic Test (Pha) 1 strip Q6HR 07/31/24 00:00 08/02/24 11:00 1 STRIP Insulin Human Regular FOLLOW SLIDING SCALE Q6HR SC 07/31/24 00:00 Dextrose 50 ml UD IV 07/31/24 00:00 Amino Acids/ Electrolytes/ Dextrose 1,000 ml @ 41 mls/hr DAILY@2200 IV 07/30/24 22:00 08/01/24 22:10 41 MLS/HR Vancomycin HCl 250 ml @ 200 mls/hr Q12H IV 07/31/24 14:00 UNV Potassium Chloride 100 ml @ 50 mls/hr Q2H IV 08/02/24 13:00 08/02/24 16:59 08/02/24 14:09 50 MLS/HR Laboratory Results Laboratory Tests 07/30/24 09:11 08/02/24 05:44 Chemistry Test 08/02/24 05:44 Albumin 3.9 g/dL (3.2-4.8) Calcium Level 8.4 mg/dL (8.7-10.4) L Magnesium Level 1.8 mg/dL (1.6-2.6) Phosphorus Level 2.5 mg/dL (2.4-5.1) Urinalysis Test 07/27/24 09:37 Urine Color Colorless (Yellow) Urine Clarity Turbid (Clear) H Urine pH 7.0 (5.0-9.0) Urine Specific [place] 1.015 (1.001-1.035) Urine Protein Negative (Negative) Urine Ketones 1+ (Negative) H Urine Blood Negative /uL (Negative) Urine Nitrite Negative (Negative) Urine Bilirubin Negative (Negative) Urine Urobilinogen Normal mg/dL (Negative) Urine Leukocyte Esterase 3+ /uL (Negative) Urine RBC 6 /hpf (0 - 4) Urine Microscopic WBC 9 /HPF (0-5) H Urine Squamous Epithelial Cells Mod /hpf (<5) Urine Bacteria Few /hpf (None Seen) H Urine Glucose Normal mg/dL (Normal) Urine Test Negative (Negative) Microbiology Microbiology Date/Time Source Procedure Growth Status 07/27/24 02:33 Blood Blood Culture - Final NO GROWTH AFTER 5 DAYS OF INCUBATION. Complete 07/27/24 02:25 Throat Nose/Throat Culture - Final Complete Labs and/or images reviewed: Labs reviewed by me, Image(s) reviewed by me Assessment/Plan Assessment/Plan Impression: -cannabinoid induced hyperemesis -hypokalemia -cannabinoid abuse -leukocytosis, probable sirs response Plan: -stop Clinimix -stop IV fluids -potassium replacement -increase p.o. intake -discharge once patient is able to tolerate oral intake Total time spent with patient discussing and formulating plan of care: 35 minutes. This medical document was created using an electronic medical record system with [employer] dictation system. Although this document has been carefully reviewed, there may still be some phonetic and typographical errors. These areas are purely typographical due to imperfections of the software programs, and do not reflect any compromise in the patient's medical care. Plan discussed with: Patient, Other (RN) Date of Service: Aug 02, 2024 Billing Provider: DANA CHAVARRIA NP Common Visit Codes: [id number] INP/OBS CARE(HIGH) DANA CHAVARRIA NP Aug 02, 2024 14:16
[2024-08-03 01:00] VITALS: BP 121/81; PULSE 74; RESP 17; TEMP 97.3; O2SAT 97
[2024-08-03 05:00] VITALS: BP 112/83; PULSE 78; RESP 18; TEMP 98.2; O2SAT 98
[2024-08-03 08:00] VITALS: PULSE 77
[2024-08-03 08:17] LABS: Alanine Aminotransferase 16 U/L (7-40); Albumin 4.1 g/dL (3.2-4.8); Alkaline Phosphatase 64 U/L (46-116); Anion Gap 13 (5-15); Aspartate Aminotransferase 19 U/L (<34); BUN/Creatinine Ratio 9.1 (10.0-20.0); Calcium 9.8 mg/dL (8.7-10.4); Carbon Dioxide 23 mmol/L (20-31); Chloride 105 mmol/L (98-107); Glucose 78 mg/dL (74-106); Sodium 141 mmol/L (136-145); Total Protein 6.4 g/dL (5.7-8.2)
[2024-08-03 08:18] LABS: Bilirubin, Total 0.5 mg/dL (0.2-1.0); Blood Urea Nitrogen 6 mg/dL (9-23); Phosphorus 3.4 mg/dL (2.4-5.1); Potassium 3.3 mmol/L (3.5-5.1)
[2024-08-03 09:00] VITALS: BP 121/82; PULSE 77; RESP 18; TEMP 97.6; O2SAT 98
[2024-08-03] MEDS ORDERED: ZOFR4T PO (09:01)
--- NOTE | 2024-08-03 09:07 | DVHDS2 ---
Discharge Summary Date of Admission Jul 27, 2024 at 06:02 Date of Discharge: Aug 03, 2024 Admitting Diagnosis Sepsis unknown origin Labs/Diagnostic Data: Laboratory Results Test 08/03/24 06:26 08/03/24 05:32 08/02/24 05:44 08/01/24 12:54 Sodium Level 141 mmol/L (136-145) Potassium Level 3.3 mmol/L (3.5-5.1) Chloride Level 105 mmol/L (98-107) Carbon Dioxide Level 23 mmol/L (20-31) Anion Gap 13 (5-15) Blood Urea Nitrogen 6 mg/dL (9-23) Creatinine 0.66 mg/dL (0.550-1.02) Glomerular Filtration Rate Calc 127 mL/min (>90) BUN/Creatinine Ratio 9.1 (10.0-20.0) Serum Glucose 78 mg/dL (74-106) Calcium Level 9.8 mg/dL (8.7-10.4) Phosphorus Level 3.4 mg/dL (2.4-5.1) Magnesium Level 2.0 mg/dL (1.6-2.6) Total Bilirubin 0.5 mg/dL (0.2-1.0) Aspartate Amino Transferase (AST) 19 U/L (<34) Alanine Aminotransferase (ALT) 16 U/L (7-40) Alkaline Phosphatase 64 U/L (46-116) Total Protein 6.4 g/dL (5.7-8.2) Albumin 4.1 g/dL (3.2-4.8) POC Glucose 100 mg/dl (70-106) Estimated GFR () 161 mL/min Estimated GFR (Non- 133 mL/min Vancomycin Level Trough 8.0 ug/mL (5-10) Test 07/30/24 09:11 07/28/24 16:27 07/28/24 06:22 07/27/24 09:37 White Blood Count 7.7 10^3/uL (4.4-10.8) Red Blood Count 4.56 10^6/uL (4.0-5.20) Hemoglobin 13.8 g/dL (12.2-16.2) Hematocrit 40.9 % (36.0-46.0) Mean Corpuscular Volume 89.6 fL (80.0-100.0) Mean Corpuscular Hemoglobin 30.3 pg (28.0-32.0) Mean Corpuscular Hemoglobin Concent 33.8 g/dL (32.0-36.0) Red Cell Distribution Width 13.0 % (11.8-14.3) Platelet Count 210 10^3/uL (140-450) Mean Platelet Volume 7.8 fL (6.9-10.8) Neutrophils (%) (Auto) 66.2 % (37.0-80.0) Lymphocytes (%) (Auto) 24.6 % (10.0-50.0) Monocytes (%) (Auto) 8.1 % (0.0-12.0) Eosinophils (%) (Auto) 0.4 % (0.0-7.0) Basophils (%) (Auto) 0.7 % (0.0-2.0) Neutrophils # (Auto) 5.1 10 ^3/uL (1.6-8.6) Lymphocytes # (Auto) 1.9 10 ^3/uL (0.4-5.4) Monocytes # (Auto) 0.6 10 ^3/uL (0-1.3) Eosinophils # (Auto) 0 10 ^3/uL (0-0.8) Basophils # (Auto) 0.1 10 ^3/uL (0-0.2) Nucleated Red Blood Cells 0.0 % Troponin I High Sensitivity 7 ng/L (</=34) Lactic Acid Level 0.9 mmol/L (0.4-2.0) Random Vancomycin Level < 3.0 ug/mL (5-10) Urine Color Colorless (Yellow) Urine Clarity Turbid (Clear) Urine pH 7.0 (5.0-9.0) Urine Specific [place] 1.015 (1.001-1.035) Urine Protein Negative (Negative) Urine Ketones 1+ (Negative) Urine Blood Negative /uL (Negative) Urine Nitrite Negative (Negative) Urine Bilirubin Negative (Negative) Urine Urobilinogen Normal mg/dL (Negative) Urine Leukocyte Esterase 3+ /uL (Negative) Urine RBC 6 /hpf (0 - 4) Urine Microscopic WBC 9 /HPF (0-5) Urine Squamous Epithelial Cells Mod /hpf (<5) Urine Bacteria Few /hpf (None Seen) Urine Glucose Normal mg/dL (Normal) Urine Test Negative (Negative) Test 07/27/24 02:30 07/27/24 02:25 Beta HCG, Quantitative 0.1 mIU/mL (1.5-4.2) Influenza Type A Antigen Negative (Negative) Influenza Type B Antigen Negative (Negative) SARS-CoV-2 Antigen (Rapid) Negative (NEGATIVE) Group A Streptococcus Rapid Negative Other Laboratory Tests 08/03/24 06:26 07/30/24 09:11 Brief Hx & Hospital Course: History of Present Illness The patient is a 23-year-old female who denies past medical history presented to [facility] ED with complaint of intractable nausea and vomiting. Patient reports symptoms progressively get worse with epigastric abdominal pain, persistent nausea, vomiting, diarrhea, unable to keep anything down for the past 2 days, tingling of extremities, getting worse that prompted this visit. Patient was seen and evaluated in the ED, laboratory data shows WBC 21.4, lactic acid 4.6, platelets 296, sodium 139, potassium 3.5, BUN 16, creatinine 1.31, glucose 146, protein 8.5, albumin 5.6, blood pressure 113/79, heart rate 85, temperature 98.4 F, O2 saturation 98% on room air. Abdomen/pelvis CT revealing small volume likely physiologic pelvic cul-de-sac free fluid, no acute abdominal or pelvic findings. Patient was started on IV antibiotic regimen Zosyn, please see medication orders section in the computer. On my assessment, patient denied chest pain, no possible , no headache, no dizziness, no diaphoresis, no shortness of breath, no abdominal pain, diarrhea, nausea or vomiting at this moment, no fever, no chills. Patient was admitted for further evaluation and medical management. Course of hospitalization: Patient had aggressive IV hydration, potassium replete. Education was given to the patient regarding the need to abstain from smoking cannabis daily. Patient will be discharged home with follow up with the discharge Clinic in one week. Patient will be given a prescription for Zofran 4 mg dissolvable tablets every 8 hours as needed for nausea. Physical examination General: Alert and Oriented x3. No acute distress. Well-nourished. Eyes: EOMI. Anicteric. HENT: Moist mucous membranes. Lungs: Clear to auscultation bilaterally. No accessory muscle use. Cardiovascular: Regular rate and rhythm. No murmur. No JVD. Abdomen: Soft, non-tender and non-distended. No palpable masses. Extremities: No edema. Non-tender. Skin: No rashes or lesions. Warm. Neurologic: No focal neurological deficits. CN II-XII grossly intact, but not individually tested. Psychiatric: Cooperative. Appropriate mood and affect. Total time spent with patient discussing and formulating plan of care: 35 minutes. This medical document was created using an electronic medical record system with [employer] dictation system. Although this document has been carefully reviewed, there may still be some phonetic and typographical errors. These areas are purely typographical due to imperfections of the software programs, and do not reflect any compromise in the patient's medical care. Consults/Reason for consult OBGYN: Pelvic fluid Condition at Discharge: Fair Final Diagnosis/Problems List Cannabinoid induced hyperemesis Secondary diagnosis: -cannabinoid induced hyperemesis -hypokalemia -cannabinoid abuse -leukocytosis, probable sirs response -sepsis ruled out Discharge Disposition: Home Discharge Instruct/Medications Diet: Regular Activity: No Restrictions, As Tolerated Follow Up/Referral: Discharge Clinic in one week Medications: Zofran 4 mg effervescent tablets q.8 hours for nausea and vomiting 36 Discharge Statement: "Patient was advised to return to the ER or call 911 if any headaches, dizziness, shortness of breath, chest pain, abdominal pain, bleeding, fevers, or worsening of medical condition. Patient was counseled about treatment plan, medications, possible side effects, patientverbalized understanding. All questions were answered to the best of my ability. This discharge took greater then 30 minutes in planning, reviewing documentation, counseling the patient, and discussing with other team members." ASSESSMENT ASSESSMENT Assessment Cannabinoid induced hyperemesis Date of Service: Aug 03, 2024 Billing Provider: DANA CHAVARRIA NP Common Visit Codes: [id number] DISCH DAY >30min DANA CHAVARRIA NP Aug 03, 2024 09:07
[2024-08-03] MEDS: POTASSIUM EFFERVESENT TAB 25 MEQ PO ONE (09:53)
[2024-08-03 10:40] VITALS: BP 125/71
== END 2024-08-03 11:32 | disposition home or self-care (01) | DRG 249 ==
LOC: ER 22:44 → OVERFLOW 07-27 06:02 → TELE-CENTR 07-27 11:57
PROVIDERS: ADMIT Hospitalist; ATTEND Hospitalist
DX: A08.4 Viral intestinal infection, unspecified (principal); N17.0 Acute kidney failure with tubular necrosis; E87.20 Acidosis, unspecified; R65.10 Systemic inflammatory response syndrome (SIRS) of non-infectious origin without acute organ dysfunction; E86.0 Dehydration; N30.00 Acute cystitis without hematuria; F12.10 Cannabis abuse, uncomplicated; E11.9 Type 2 diabetes mellitus without complications; E87.6 Hypokalemia; F41.9 Anxiety disorder, unspecified; Z81.1 Family history of alcohol abuse and dependence; Z83.3 Family history of diabetes mellitus
CPT/HCPCS: 36415; 74176; 80053; 80069; 80202; 81001; 81025; 82962; 83605; 83735; 84100; 84132; 84484; 84702; 85025; 87040; 87070; 87426; 87804; 87880; 93005; 99291; G0378; J2003; J2405; J2470; J2543; J3480